=== PATIENT | male | born 1955 | race Caucasian/White ===

== ENCOUNTER → 2017-01-12 | Outpatient (CLI) | payer OTHER ==
--- NOTE | 2017-01-13 11:43 | MRI ---
HISTORY: Post laminectomy syndrome. Low back pain going down legs. Study: Magnetic resonance imaging of the lumbar spine: Multiplanar multisequence magnetic resonance imaging of the lumbar spine was performed. Comparison: None Findings: Examination of the paraspinal soft tissues demonstrate what is seen of the kidneys to be normal. No evidence of an abdominal aortic aneurysm or retroperitoneal lymph node enlargement is identified. A retro aortic left renal vein is present. The paraspinous muscular is normal. Prior surgery has been performed at L4 and L5 consisting of wide laminectomy. Partial resection of the L4 spinous process is noted. There appears to been complete resection of the spinous process of L5. The sagittal images demonstrate normal curvature and alignment. Mild to moderate disc space narrowin g is noted at L4/L5 and L5/S1. Hixa-cw-mionszsk disc desiccation is noted at these 2 levels with min imal elsewhere. The marrow signal intensity is homogeneous. There appears to be a hemangioma in the L5 vertebral body on the right and the L1 vertebral body on the left.. The conus is of normal signa l intensity, size location, terminating at approximately L1. T11/T12: Minimal facet arthropathy. No other significant abnormalities. T12/L1: Minimal facet arthropathy. No other significant abnormalities. L1/L2: Mild facet arthropathy. No other significant abnormalities. L2/L3: Very minimal disc bulging. [id number] facet arthropathy. Mild thickening of the ligam entum flavum. Mild spinal stenosis. L3/L4: Moderate diffuse disc bulging. Disc bulging extends into the inferior recess of both neural foramen with moderate foraminal stenosis. Moderate facet arthropathy and moderate thickening of the ligamentum flavum is noted. Moderate spinal stenosis is present. L4/L5: Moderately severe disc bulging. This spans the spinal canal producing moderate to moderately severe foraminal stenosis, left greater than right. There appears to be minimal neural impingement in the left neural foramen. Moderate facet arthropathy is noted. Moderately severe lateral recess s tenosis is noted bilaterally. Moderate spinal stenosis. L5/S1. Moderately severe diffuse disc bulging. This spans the spinal canal and extends into both ne ural foramen. Moderately severe foraminal stenosis is noted bilaterally. Moderately severe facet ar thropathy is noted, right greater than left. There may be a small disc protrusion versus epidural fi brosis on the right. Moderately severe lateral recess stenosis is noted bilaterally with neural impi ngement in both foramen. IMPRESSION: 1. Lumbar spondylosis and postoperative change as described above. 2. This predominates at L4/L5 and L5/S1. 3. Please see detailed report above. 4. A follow-up MRI with contrast may be of assistance in further evaluation. Reported By:
== END | disposition home or self-care (01) | DRG 552 ==
LOC: RAD 14:36
PROVIDERS: ATTEND Internal Medicine
DX: M96.1 Postlaminectomy syndrome, not elsewhere classified (principal); M48.061 Spinal stenosis, lumbar region without neurogenic claudication; M12.88 Other specific arthropathies, not elsewhere classified, other specified site
CPT/HCPCS: 72148

== ENCOUNTER 2022-12-11 22:24 | Inpatient (IN) ==
--- NOTE | 2022-12-11 22:54 | DR.ABDMALE ---
HPI Time seen Time Seen by Provider: 12/11/22 22:54 PCP Primary Care Physician: Dr. Mcelroy Complaint Chief Complaint Doctors Comments: 67-year-old male presents for evaluation. Has had sinus congestion for some time, but worsened over the past 4 days. Has developed a cough, productive of minimal sputum, developed shortness of breath tonight. No history of lung troubles in the past, but is a cigarette smoker. No vomiting, diarrhea or urinary issues. Having generalized aches, weakness. Also with a rash of his back and abdomen that comes and goes. Chief Complaint:: Pt ambulatory into ER, pt's states the patient has been experiencing conjestion and cold symptoms x4 day when the pt suddenly became pale, very weak and having trouble breathing this afternoon. The pt states he has had a rash since 12/09/22 that comes and goes across his back and abdomnen along with abdominal pain. Pt is diaphoretic, pale, and experiencing involuentury tremors. Pt denies any complaints of chest pain. Self Treatment fo Chief Complaint: OTC cold medicine, Pt drank whiskey with lemon and honey around 2100 COVID-19 Coronavirus risk:travel/contact w/high risk person: No Has patient experienced Coronavirus symptoms: Yes Coronavirus symptoms experienced: Fever, Coughing and Shortness of Breath Reviewed Nurses Notes Review: Yes Source History provided by:: Patient and spouse Mode of arrival Mode of Arrival: Ambulatory Timing Onset of Chief Complaint: 12/08/22 PMH PMH Past Medical History: Yes Past Medical History: Hypertension Past Surgical History: Yes Surgical History: Other Past Surgical History Comment: back sx x2 Family History History of Family Medical Conditions: Yes Family Medical History: [place] Social History Type of Tobacco Use: Cigarettes Alcohol Use: Occasionally Lives With: Spouse Lives Where: Home Travel Risk Coronavirus risk:travel/contact w/high risk person: No Has patient experienced Coronavirus symptoms: Yes Coronavirus symptoms experienced: Fever, Coughing and Shortness of Breath Infectious screening Have you traveled outside the country in the last 6 months?: No Isolation: Respiratory ROS Review of Systems Constitutional: Chills, Fever and Weakness Eyes: No Symptoms Reported ENTM: Nose Congestion Respiratoy: Moist Cough and Short of Breath Cardiovascular: No Symptoms Reported Gastrointestinal/Abdominal: No Symptoms Reported Genitourinary: No Symptoms Reported Neurological: Weakness Musculoskeletal: Muscle Pain Integumentary: Rash Hematologic/Lymphatic: No Symptoms Reported All Other Systems: Reviewed and Negative PE Vital Signs Vital Signs: Temp Pulse Resp BP Pulse Ox O2 Del Method O2 Flow Rate 12/12/22 00:30 94 H 100 12/12/22 00:45 100 H 94 L 12/12/22 00:30 101 H 96 12/12/22 00:30 125/58 12/12/22 00:15 103 H 96 12/12/22 00:00 105 H 95 12/12/22 00:00 100.6 F H 129/68 12/11/22 23:45 115 H 92 L Nasal Cannula 3 12/11/22 23:30 110 H 94 L Nasal Cannula 3 12/11/22 23:30 141/68 12/11/22 23:15 115 H 94 L Nasal Cannula 3 12/11/22 23:15 23 12/11/22 23:00 146/79 12/11/22 23:00 116 H 93 L Nasal Cannula 3 12/11/22 23:06 23 12/11/22 22:51 142/76 12/11/22 22:51 119 H 90 L Nasal Cannula 3 12/11/22 22:36 102.1 F H 122 H 26 H 140/69 87 L Room Air General General Appearance: Alert and Other (Appears uncomfortable. Pulse ox 86% on RA.) Eyes Eye exam: PERRL and EOMI ENT ENT Exam: Normal Oropharynx, Mucous Membranes Moist and TM's Normal Bilaterally Neck Neck Exam: Normal Inspection and Full ROM; negative Tenderness Respiratory Respiratory Exam: Other (slight rales of R base, decreased breath sounds of bases. ); negative Accessory Muscle Use or Respiratory Distress Cardiovascular Cardiovascular Exam: Regular Rate, Normal Rhythm, Tachycardia and Normal Heart Sounds Abdominal Exam Abdominal Exam: Normal Bowel Sounds and Soft; negative Tenderness Extremeties Extremities Exam: Normal Inspection and Full ROM; negative Edema Neurologic Neurological Exam: Alert, Oriented X3 and CN II-XII Intact; negative Motor Sensory Deficit Skin Skin Exam: Warm, Dry and Rash (fine erythematous maculapapular rash of trunk. ) COURSE Treatment Treatment: 67-year-old male presents with cough and shortness of breath. Pulse ox in triage in the upper 80s on room air. Placed on O2, pulse ox 93 to 95% on 2 L. Patient with a temp greater than 102 on arrival. Given oral Tylenol, IV Toradol, IV fluids. Chest x-ray without obvious pneumonia. White count elevated to 13,300. Has a marked left shift of 93 neutrophils 2 bands and only 3 lymphocytes. CMP with potassium little bit low at 3.2, otherwise unremarkable. Negative for COVID/flu. He has positive for RSV. Patient with probable degree of underlying COPD in view of his chronic smoking history. Patient given IV Solu-Medrol, 125 mg and a DuoNeb breathing treatment. Still the same. Discussed with covering MD, Dr. South, accepts admission. We will continue oxygen, DuoNeb treatments, Solu-Medrol, and cover with Rocephin. Potassium a bit low, given oral potassium replacement. ROR Labs Reviewed 12/11/22 22:58 12/11/22 22:58 Laboratory: WBC 13.3 X10^3/uL (3.6-10.0) H 12/11/22 22:58 RBC 4.44 X10^6/uL (4.7-6.0) L 12/11/22 22:58 Hgb 14.5 g/dL (13.5-18.0) 12/11/22 22:58 Hct 43.1 % (42.0-54.0) 12/11/22 22:58 MCV 97.1 fL (80.0-100.0) 12/11/22 22:58 MCH 32.7 pg (27.0-34.0) 12/11/22 22:58 MCHC 33.7 g/dL (33.0-35.0) 12/11/22 22:58 RDW 13.5 % (11.6-16.5) 12/11/22 22:58 Plt Count 129 X10^3/uL (150.0-450.0) L 12/11/22 22:58 Plt Count Comment Decreased (ADEQUATE) 12/11/22 22:58 MPV 9.5 fL (7.4-11.0) 12/11/22 22:58 Neut % (Auto) 93.0 % (42.0-75.0) H 12/11/22 22:58 Lymph % (Auto) 3.9 % (21.0-51.0) L 12/11/22 22:58 [place] % (Auto) 2.9 % (0.0-13.0) 12/11/22 22:58 Eos % (Auto) 0.0 % (0.9-2.9) L 12/11/22 22:58 Baso % (Auto) 0.2 % (0.2-1.0) 12/11/22 22:58 Neut # (Auto) 12.3 x10^3/uL (2.2-4.8) H 12/11/22 22:58 Lymph # (Auto) 0.5 X10^3/uL (1.3-2.9) L 12/11/22 22:58 [place] # (Auto) 0.4 x10^3/uL (0.3-0.8) 12/11/22 22:58 Eos # (Auto) 0.0 x10^3/uL (0.0-0.2) 12/11/22 22:58 Baso # (Auto) 0.0 X10^3/uL (0.0-0.1) 12/11/22 22:58 Absolute Nucleated RBC 0.1 /100WBC 12/11/22 22:58 Total Counted 100 12/11/22 22:58 Neutrophils % (Manual) 93 % (39-76) H 12/11/22 22:58 Band Neutrophils % 2 % (0-10) 12/11/22 22:58 Lymphocytes % (Manual) 3 % (13-43) L 12/11/22 22:58 Monocytes % (Manual) 2 % (4-9) L 12/11/22 22:58 Plt Morphology Comment Normal (NORMAL) 12/11/22 22:58 RBC Morphology Abnormal (NORMAL) 12/11/22 22:58 Stomatocytes Present 12/11/22 22:58 Sodium 139 mmol/L (136-145) 12/11/22 22:58 Corrected Sodium 140 mmol/L (136-145) 12/11/22 22:58 Potassium 3.2 mmol/L (3.5-5.1) L 12/11/22 22:58 Chloride 100 mmol/L (98-107) 12/11/22 22:58 Carbon Dioxide 26.6 mmol/L (21-32) 12/11/22 22:58 BUN 17 mg/dL (7-18) 12/11/22 22:58 Creatinine 0.77 mg/dL (0.70-1.30) 12/11/22 22:58 Est GFR (MDRD) Af Amer > 60 (>60) 12/11/22 22:58 Est GFR (MDRD) Non-Af > 60 (>60) 12/11/22 22:58 Glucose 146 mg/dL (65-99) H 12/11/22 22:58 Lactic Acid 1.3 mmol/L (0.4-2.0) 12/11/22 23:08 Calcium 8.3 mg/dL (8.5-10.1) L 12/11/22 22:58 Corrected Calcium TNP 12/11/22 22:58 Total Bilirubin 0.90 mg/dL (0.2-1.0) 12/11/22 22:58 AST 41 Units/L (15-37) H 12/11/22 22:58 ALT 77 Units/L (12-78) 12/11/22 22:58 Alkaline Phosphatase 89 Units/L (46-116) 12/11/22 22:58 Total Protein 7.2 g/dL (6.4-8.2) 12/11/22 22:58 Albumin 3.9 g/dL (3.4-5.0) 12/11/22 22:58 Globulin 3.3 g/dL (2.5-4.5) 12/11/22 22:58 Albumin/Globulin Ratio 1.2 Ratio (1.1-2.1) 12/11/22 22:58 SARS-CoV-2 (PCR) Negative (NEGATIVE) 12/11/22 22:53 Influenza Type A (PCR) Negative (NEGATIVE) 12/11/22 22:53 Influenza Type B (PCR) Negative (NEGATIVE) 12/11/22 22:53 RSV (PCR) Positive (NEGATIVE) A 12/11/22 22:53 S. pyogenes (TEM-PCR) Not detected (NOT DETECT) 12/11/22 23:15 Opioid Opioid Risk Tool Age (Emanuel box if 16-45): No History of Preadolescent Sexual Abuse: No Total: 0 Total Score Risk Category: Low Risk Copyright: Tavo CASTRO predicting aberrant behaviors Discharge Plan Discharge Plan Patient Disposition: HOME, SELF-CARE Condition: Stable Prescriptions: No Action alprazolam 1 mg tablet 1 mg PO QDAY PRN bisoprolol-hydrochlorothiazide 5-6.25 mg tablet 1 tab PO BID aspirin 81 mg Tablet,Chewable 81 mg PO DAILY Orders to Discharge Patient Discharge Orders: Transfer (Routine); Ordered 12/12/22 Ordered By: Sai Baker
[2022-12-11] MEDS ORDERED: TYLENOL 500 MG TAB EXTRA STRENGTH PO STA (22:55)
[2022-12-11] MEDS ORDERED: NS 1,000 ML IV 1,000 ML IV ONE (22:55)
[2022-12-11] MEDS ORDERED: NS 1,000 ML IV 1,000 ML ONE (23:01)
[2022-12-11] MEDS ORDERED: TYLENOL 500 MG TAB EXTRA STRENGTH PO ONE (23:01)
[2022-12-11] MEDS ORDERED: TORADOL 30 MG VIAL IVP ONE (23:09)
[2022-12-11] MEDS ORDERED: TORADOL 30 MG VIAL ONE (23:10)
[2022-12-11 23:22] LABS: HEMATOCRIT 43.1 % (42.0-54.0); LYMPHOCYTES # (AUTO) 0.5 X10^3/uL (1.3-2.9); MONOCYTES # (AUTO) 0.4 x10^3/uL (0.3-0.8); RED BLOOD COUNT 4.44 X10^6/uL (4.7-6.0); WHITE BLOOD COUNT 13.3 X10^3/uL (3.6-10.0)
[2022-12-11 23:29] LABS: BASOPHILS % (AUTO) 0.2 % (0.2-1.0); HEMOGLOBIN 14.5 g/dL (13.5-18.0); LYMPHOCYTES % (AUTO) 3.9 % (21.0-51.0); MEAN CORPUSCULAR HEMOGLOBIN 32.7 pg (27.0-34.0); MEAN CORPUSCULAR HGB CONC 33.7 g/dL (33.0-35.0); MEAN CORPUSCULAR VOLUME 97.1 fL (80.0-100.0); MEAN PLATELET VOLUME 9.5 fL (7.4-11.0); MONOCYTES % (AUTO) 2.9 % (0.0-13.0); NEUTROPHILS # (AUTO) 12.3 x10^3/uL (2.2-4.8); PLATELET COUNT 129 X10^3/uL (150.0-450.0); RED CELL DISTRIBUTION WIDTH 13.5 % (11.6-16.5)
[2022-12-11 23:36] LABS: BAND NEUTROPHILS % 2 % (0-10)
[2022-12-11 23:37] LABS: PLATELET MORPHOLOGY COMMENT NORMAL (NORMAL); STOMATOCYTES PRESENT
[2022-12-11 23:46] LABS: BLOOD UREA NITROGEN 17 mg/dL (7-18); CALCIUM 8.3 mg/dL (8.5-10.1); CARBON DIOXIDE 26.6 mmol/L (21-32); CHLORIDE 100 mmol/L (98-107); COR NA(FOR HYPERGLY) 140 mmol/L (136-145); CREATININE 0.77 mg/dL (0.70-1.30); GLUCOSE 146 mg/dL (65-99); POTASSIUM 3.2 mmol/L (3.5-5.1); SODIUM 139 mmol/L (136-145); eGFR NON BLACK RACES > 60 (>60)
--- NOTE | 2022-12-12 00:11 | RAD ---
PROCEDURE: Chest X-ray 1 View .HISTORY: Cough and dyspnea.TECHNIQUE: AP view .COMPARISON: None .TECHNICAL QUALITY: Satisfactory .FINDINGS:Normal size heart .Mediastinum and hilar regions show no masses or lymphadenopathy .Normal central vascularity .No pulmonary consolidation, masses, pleural fluid, or pneumothorax .No acute bony abnormality .IMPRESSION:No active cardiopulmonary disease .Electronically signed by: Darvin Siu (Dec 12, 2022 00:10:25)
[2022-12-12] MEDS ORDERED: DUONEB 0.5 MG/3 MG (3 mL) NEB ONE ×2 (00:25→00:31)
[2022-12-12] MEDS ORDERED: SOLU-Medrol 125 MG VIAL IVP ONE (00:25)
[2022-12-12] MEDS ORDERED: SOLU-Medrol 125 MG VIAL ONE (00:30)
[2022-12-12 00:42] LABS: ALANINE AMINOTRANSFERASE 77 Units/L (12-78); ALBUMIN 3.9 g/dL (3.4-5.0); ALKALINE PHOSPHATASE 89 Units/L (46-116); ASPARTATE AMINO TRANSFERASE 41 Units/L (15-37); TOTAL PROTEIN 7.2 g/dL (6.4-8.2)
[2022-12-12] MEDS ORDERED: ROCEPHIN VIAL 1 GRAM IVP STA (01:16)
[2022-12-12] MEDS ORDERED: K-DUR TAB 20 MEQ PO STA (01:18)
[2022-12-12] MEDS ORDERED: ROCEPHIN VIAL 1 GRAM ONE (01:27)
[2022-12-12] MEDS ORDERED: K-DUR TAB 20 MEQ PO ONE (01:27)
[2022-12-12] MEDS ORDERED: CONSULT PHARMACY - POTASSIUM & MAGNESIUM XX SCH ×2 (02:00→07:00)
[2022-12-12] MEDS: D5 1/2 NS 1,000 ML 1,000 ML IV SCH ×3 (02:21→21:22)
[2022-12-12 02:34] VITALS: BMI 23.8
[2022-12-12] MEDS: K-DUR TAB 20 MEQ PO SCH ×3 (03:51→21:23)
[2022-12-12] MEDS: DUONEB 0.5 MG/3 MG (3 mL) NEB SCH ×3 (05:15→20:00)
[2022-12-12] MEDS: SOLU-Medrol 40 MG VIAL IVP SCH ×3 (05:20→21:24)
[2022-12-12] MEDS: XANAX PO PRN ×2 (05:20→21:25)
[2022-12-12 05:31] LABS: BASOPHILS % (AUTO) 0.1 % (0.2-1.0); HEMATOCRIT 41.5 % (42.0-54.0); HEMOGLOBIN 13.9 g/dL (13.5-18.0); LYMPHOCYTES # (AUTO) 0.4 X10^3/uL (1.3-2.9); LYMPHOCYTES % (AUTO) 2.3 % (21.0-51.0); MEAN CORPUSCULAR HEMOGLOBIN 32.8 pg (27.0-34.0); MEAN CORPUSCULAR HGB CONC 33.4 g/dL (33.0-35.0); MEAN CORPUSCULAR VOLUME 98.1 fL (80.0-100.0); MEAN PLATELET VOLUME 9.5 fL (7.4-11.0); MONOCYTES % (AUTO) 5.9 % (0.0-13.0); NEUTROPHILS # (AUTO) 15.9 x10^3/uL (2.2-4.8); NEUTROPHILS % (AUTO) 91.7 % (42.0-75.0); PLATELET COUNT 127 X10^3/uL (150.0-450.0); RED BLOOD COUNT 4.23 X10^6/uL (4.7-6.0); RED CELL DISTRIBUTION WIDTH 13.6 % (11.6-16.5); WHITE BLOOD COUNT 17.3 X10^3/uL (3.6-10.0)
[2022-12-12 05:49] LABS: ALANINE AMINOTRANSFERASE 62 Units/L (12-78); ALBUMIN 3.3 g/dL (3.4-5.0); ALKALINE PHOSPHATASE 75 Units/L (46-116); ASPARTATE AMINO TRANSFERASE 37 Units/L (15-37); BAND NEUTROPHILS % 5 % (0-10); BLOOD UREA NITROGEN 17 mg/dL (7-18); CALCIUM 7.7 mg/dL (8.5-10.1); CARBON DIOXIDE 30.3 mmol/L (21-32); CHLORIDE 102 mmol/L (98-107); COR CA(FOR HYPOALB) 8.3 mg/dL (8.5-10.1); COR NA(FOR HYPERGLY) 140 mmol/L (136-145); CREATININE 0.84 mg/dL (0.70-1.30); GLUCOSE 185 mg/dL (65-99); PLATELET MORPHOLOGY COMMENT NORMAL (NORMAL); POTASSIUM 3.8 mmol/L (3.5-5.1); SODIUM 138 mmol/L (136-145); TOTAL PROTEIN 6.4 g/dL (6.4-8.2); eGFR NON BLACK RACES > 60 (>60)
[2022-12-12 05:50] LABS: STOMATOCYTES PRESENT
[2022-12-12 07:25] LABS: BILIRUBIN,URINE NEGATIVE (NEGATIVE); BLOOD/HEMOGLOBIN,URINE NEGATIVE (NEGATIVE); GLUCOSE, URINE NEGATIVE (NEGATIVE); KETONES,URINE NEGATIVE (NEGATIVE); LEUKOCYTE ESTERASE ,URINE NEGATIVE (NEGATIVE); NITRITES,URINE NEGATIVE (NEGATIVE); PROTEIN,URINE 2+ (NEGATIVE); UROBILINOGEN,URINE NORMAL (NORMAL)
[2022-12-12 07:34] LABS: APPEARANCE,URINE CLEAR (CLEAR); BACTERIA,URINE NEGATIVE /HPF (NEGATIVE); COLOR,URINE YELLOW (YELLOW); RBC,URINE NONE SEEN /HPF (0-3); SQUAMOUS EPITHELIAL CELL,UR RARE /HPF (NEGATIVE)
[2022-12-12] MEDS ORDERED: K-DUR TAB 20 MEQ PO SCH (08:00)
[2022-12-12] MEDS: ASPIRIN 81 MG CHEWTAB PO SCH (09:07)
[2022-12-12] MEDS: MAG-OX TAB PO SCH ×2 (09:07→11:16)
[2022-12-12] MEDS: ZIAC 5/6.25 MG PO SCH ×2 (09:08→21:24)
[2022-12-12 09:16] LABS: ABG ALLEN TEST pos; ABG HCO3 27.6 mmol/L (22-26)
[2022-12-12] MEDS ORDERED: NICOTINE PATCH TD ONE (17:23)
[2022-12-12] MEDS: NICOTINE PATCH TD SCH (17:33)
[2022-12-12] MEDS ORDERED: ROCEPHIN VIAL 1 GRAM 1 G in NS 100 ML IV 100 ML IV SCH (21:00)
[2022-12-12] MEDS: CHECK PATCH XX SCH (21:23)
--- NOTE | 2022-12-12 21:24 | DR.H&P ---
H&P - History & Physical for Day of: H&P Date: 12/11/22 - Chief Complaint Chief Complaint: COUGH, SOB, FEVER, BODY ACHES, WEAKNESS - History of Present Illness History of Present Illness: IS A 67 YEAR OLD PATIENT OF OURS. HE PRESENTED TO THE ER WITH COMPLAINTS OF SONUS CONGESTION, PRODUCTIVE COUGH, AND SHORNTESS OF BREATH. SYMPTOMS APPARENTLY STARTED 3-4 DAYS AGO, BUT HAVE PROGRESSIVELY GOTTEN WORSE. HE DENIES A HX OF LUNG DISEASE, BUT IS AN EVERYDAY CIGARETTE SMOKER. PMH INCLUDES HTN, GENERALIZED ANXIETY, CHRONIC BACK PAIN, AND BACK SURGERY X 2. HE ADMITS TO BODY ACHES, WEAKNESS, FEVER, AND ALSO REPORTS A RASH OF HIS BACK AND ABDOMEN THAT COMES AND GOES. HE DENIES NAUSEA, VOMITING, OR URINARY ISSUES. ON ARRIVAL TO THE HOSPITAL, HIS VITALS WERE: 102.1-122-26-87% ROOM AIR-140/69. LABS WERE OBTAINED. WBC 13.3, RBC 4.44, RBC 14.5, HCT 43.1, PLT COUNT 129, SODIUM 139, POTASSIUM 3.2, CHLORIDE 100, CARBON DIOXIDE 26.6, BUN 17, CREATININE 0.77, GLUCOSE 146, CALCIUM 8.3, TOTAL BILI 0.90, AST 41, ALT 77, ALK PHOS 89, TOTAL PROTEIN 7.2, ALBUMIN 3.9. URINALYSIS WAS OBTAINED AND WAS UNREMARKABLE. ABG REVEALED: PH 7.480, PC02 37, P02 51, HC03 27.6, 02 SAT 88, BASE EXCESS 4.0, A-A GRADIENT 52, FI02 21.0. COVID, INFLUENZA, AND STREP WERE NEGATIVE. PATIENT DID TEST POSITIVE FOR RSV. A CHEST XRAY WAS OBTAINED AND WAS NEGATIVE FOR ACUTE CARDIOPULMONARY DISEASE. IN THE ER, HE WAS GIVEN A NORMAL SALINE BOLUS, TYLENOL 1G PO X 1, TORADOL 30MG IV X 1, DUONEB X 1, SOLU-MEDROL 125MG IV X 1, ROCEPHIN 1G IV X 1, AND K-DUR 20MEQ PO X 1 DOSE. DECISION WAS MADE TO ADMIT PATIENT TO THE HOSPITAL FOR FURTHER EVALUATION AND TREATMENT OF RSV, ACUTE BRONCHITIS, HYPOXIA. HE WAS STARTED ON D51/2 NS NS AT 125 ML/HR, ROCEPHIN 1G IV DAILY, DUONEBS TID, K0DUR 20MEQ BID, NICOTINE PATCH DAILY, SOLU-MEDROL 40MG IV Q8H. HIS HOME MEDICATIONS OF XANAX, ASPIRIN, AND BISOPROLOL WERE RESUMED. WE WILL OBTAIN A CHEST CT WITH CONTRAST. OTHERWISE, WE WILL FOLLOW UP WITH AM LABS AND CONTINUE TO MONITOR. TIME SPENT ON CLINICAL ASSESSMENT, REVIEWING LABS AND IMAGING, DECISION MAKING, AND DOCUMENTATION GREATER THAN 75 MINUTES. - Past Medical History Past Medical History: Hypertension - Past Surgical History Surgical History: Other Additional Surgical History: BACK SURGERY X 2 - Family History Family Medical History: [place] - Social History Does patient currently use any type of tobacco product: Yes (cigarettes) Have you used tobacco products in the last 12 months: Yes Type of Tobacco Use: Cigarettes Does any household member use tobacco: No Alcohol Use: Rarely Drug Use: None - Review of Systems Constitutional: Fever, Chills, Weakness Eyes: No Symptoms Reported ENT: No Symptoms Reported Respiratory: Cough, Shortness of Breath, SOB with Excertion, Sputum Cardiovascular: No Symptoms Reported Gastrointestinal: No Symptoms Reported Genitourinary: No Symptoms Reported Musculoskeletal: No Symptoms Reported Skin: No Symptoms Reported Neurological: Weakness - Physical Exam Vital Signs: Vital Signs Temperature 98.2 F Temperature 97.6 F Pulse Rate [Apical] 96 Pulse Rate [Apical] 94 Pulse Rate 91 Respiratory Rate 20 Respiratory Rate 20 Blood Pressure [Left Arm] 143/68 Blood Pressure [Left Arm] 120/61 O2 Sat by Pulse Oximetry 96 O2 Sat by Pulse Oximetry 95 O2 Sat by Pulse Oximetry 94 Oriented: Normal Eyes: Normal Ear: Normal Nose: Normal Throat: Normal Respiratory: Diminished Throughout, Wheezes Throughout Cardiovascular: Tachycardia : Normal Auscultation: Bowel Sounds: Normal Palpation: Normal Tenderness: Normal Skin: Normal Musculoskeletal: Normal Psychiatric: Normal Mood Description: Calm Affect: Normal Speech Pattern: Clear - Assessment/Plan (1) RSV infection Status: Acute Plan: ADMIT, OBTAIN CHEST CT WITH CONTRAST, D51/2 NS NS AT 125 ML/HR, ROCEPHIN 1G IV DAILY, DUONEBS TID, K0DUR 20MEQ BID, NICOTINE PATCH DAILY, SOLU-MEDROL 40MG IV Q8H, RESUME HOME MEDS (2) Acute bronchitis Qualifiers: Bronchitis organism: unspecified organism Qualified Code(s): J20.9 - Acute bronchitis, unspecified Status: Acute (3) Hypoxia Status: Acute (4) HTN (hypertension) Qualifiers: Hypertension type: primary hypertension Qualified Code(s): I10 - Essential (primary) hypertension Status: Chronic Plan: RESUME BISOPROLOL (5) Generalized anxiety disorder Status: Chronic Plan: RESUME XANAX - Allergies Allergies/Adverse Reactions: Allergies Allergy/AdvReac Type Severity Reaction Status Date / Time No Known Allergies Allergy Verified 12/11/22 23:09 - Medications Home Medications: Home Medications Medication Instructions Recorded Confirmed alprazolam 1 mg tablet 1 mg PO QDAY PRN 12/11/22 12/11/22 aspirin 81 mg chewable tablet 81 mg PO DAILY 12/11/22 12/11/22 bisoprolol 5 1 tab PO BID 12/11/22 12/11/22 mg-hydrochlorothiazide 6.25 mg tablet
[2022-12-13] MEDS ORDERED: DUONEB 0.5 MG/3 MG (3 mL) NEB ONE (05:01)
[2022-12-13] MEDS: SOLU-Medrol 40 MG VIAL IVP SCH ×3 (05:19→21:17)
[2022-12-13] MEDS: D5 1/2 NS 1,000 ML 1,000 ML IV SCH ×3 (05:19→21:15)
[2022-12-13] MEDS ORDERED: OMNIPAQUE 350 mg/mL 100 mL BTL 100 ML ONE (05:23)
[2022-12-13] MEDS ORDERED: NS 100 ML IV 100 ML ONE (05:23)
[2022-12-13] MEDS: DUONEB 0.5 MG/3 MG (3 mL) NEB SCH ×5 (05:26→20:08)
[2022-12-13 06:08] LABS: BASOPHILS % (AUTO) 0.2 % (0.2-1.0); HEMATOCRIT 40.1 % (42.0-54.0); HEMOGLOBIN 13.2 g/dL (13.5-18.0); LYMPHOCYTES % (AUTO) 4.9 % (21.0-51.0); MEAN CORPUSCULAR HEMOGLOBIN 32.6 pg (27.0-34.0); MEAN CORPUSCULAR VOLUME 98.8 fL (80.0-100.0); MEAN PLATELET VOLUME 10.2 fL (7.4-11.0); MONOCYTES % (AUTO) 5.2 % (0.0-13.0); NEUTROPHILS # (AUTO) 17.5 x10^3/uL (2.2-4.8); NEUTROPHILS % (AUTO) 89.7 % (42.0-75.0); PLATELET COUNT 133 X10^3/uL (150.0-450.0); RED BLOOD COUNT 4.06 X10^6/uL (4.7-6.0); RED CELL DISTRIBUTION WIDTH 13.8 % (11.6-16.5); WHITE BLOOD COUNT 19.5 X10^3/uL (3.6-10.0)
[2022-12-13 06:15] LABS: ALANINE AMINOTRANSFERASE 51 Units/L (12-78); ALKALINE PHOSPHATASE 75 Units/L (46-116); ASPARTATE AMINO TRANSFERASE 25 Units/L (15-37); BLOOD UREA NITROGEN 16 mg/dL (7-18); CALCIUM 8.1 mg/dL (8.5-10.1); CARBON DIOXIDE 27.1 mmol/L (21-32); CHLORIDE 104 mmol/L (98-107); COR CA(FOR HYPOALB) 8.9 mg/dL (8.5-10.1); COR NA(FOR HYPERGLY) 139 mmol/L (136-145); CREATININE 0.68 mg/dL (0.70-1.30); GLUCOSE 168 mg/dL (65-99); MAGNESIUM 2.2 mg/dL (2.0-2.9); POTASSIUM 4.1 mmol/L (3.5-5.1); SODIUM 137 mmol/L (136-145); TOTAL PROTEIN 6.4 g/dL (6.4-8.2); eGFR NON BLACK RACES > 60 (>60)
--- NOTE | 2022-12-13 06:19 | RAD ---
EXAM:Portable chestHISTORY:Shortness of breath, RSVCOMPARISON:12/11/2022FINDINGS:Heart size is normal. Mariel are normal. Lungs are well inflated and free of acute infiltrates. No pleural effusions are identified. Bony thorax is unremarkable.IMPRESSION:No significant abnormality identifiedTHIS IS AN ELECTRONICALLY VERIFIED FINAL [id number]/13/2022 6:16 AM - Electronically signed by Kimani Mckenzie MD
--- NOTE | 2022-12-13 07:05 | CT ---
EXAM:CHEST WITH CONTRASTHISTORY:Acute hypoxia, RSVTECHNIQUE:Axial postcontrast images with coronal and sagittal reformats. Dose reduction procedures were used with mA/kv adjusted for body size.COMPARISON:NoneFINDINGS:Examination of the mediastinum demonstrated no evidence for mediastinal masses, and large mediastinal or enlarged hilar adenopathy. Or significant aortic abnormality other than calcific atherosclerotic change. Calcified mediastinal and hilar nodes likely related to old granulomatous disease. No pleural effusions are identified. No chest wall or axillary abnormalities identified. Those portions of the upper abdominal organs visualized appeared within normal limits with the exception of mild fatty infiltration of the liver. No chest wall or axillary abnormality is identified. Examination of the lung warren demonstrated bilateral benign calcified granulomas. There are some very subtle peribronchial infiltrates in the right upper lobe, posterior right lower lobe and posterior left lower lobe. Findings are suspicious for mild or early multifocal bronchopneumonia. These infiltrates were not visible on the recent plain film. There is also diffuse peribronchial thickening predominantly in the lower lobes consistent with bronchitis which could be acute, chronic, or both. No masses or areas of consolidation or bronchiectasis identified. No significant pulmonary nodules are identified.IMPRESSION:Multifocal small areas of very subtle peribronchial infiltrate involving the right upper lobe and bilateral lower lobes suggestive of mild or early multifocal bronchopneumonia. These findings are not visible on the recent plain filmDiffuse peribronchial thickening most prominent in the lower lobes bilaterally consistent with bronchitis which could be acute, chronic, or bothOld granulomatous diseaseTHIS IS AN ELECTRONICALLY VERIFIED FINAL [id number]/13/2022 7:01 AM - Electronically signed by Kimani Mckenzie MD
[2022-12-13] MEDS: ASPIRIN 81 MG CHEWTAB PO SCH (09:42)
[2022-12-13] MEDS: NICOTINE PATCH TD SCH (09:42)
[2022-12-13] MEDS: XANAX PO PRN (09:42)
[2022-12-13] MEDS: ZIAC 5/6.25 MG PO SCH ×2 (09:43→21:17)
[2022-12-13] MEDS: K-DUR TAB 20 MEQ PO SCH ×2 (09:43→21:17)
[2022-12-13] MEDS: CHECK PATCH XX SCH ×3 (09:44→23:38)
[2022-12-13] MEDS ORDERED: FORTAZ or TAZICEF VIAL INJ IVP SCH (11:00)
--- NOTE | 2022-12-13 11:23 | PCM.PROG ---
Progress Note - Progress Note for Day of Date of Exam: 12/13/22 - Subjective Subjective: IS CURRENTLY INPATIENT STATUS FOR TREATMENT OF RSV, ACUTE BRONCHITIS, HYPOXIA, HTN, AND GENERALIZED ANXIETY. TODAY, HE IS ALERT AND OREINTED, LYING IN BED ON MORNING ROUNDS. HE REPORTS HAVING AN UNEVENTFUL NIGHT. HE CONTINUES TO COMPLAIN OF SHORTNESS OF BREATH AND COUGH THIS MORNING. HE APPEARS TO HAVE INCREASED RESPIRATORY EFFORTS THIS MORNING, COMPARED TO YESTERDAY. NURSING STAFF REPORTS THAT HIS OXYGEN SATURATIONS DID FALL TO THE UPPER 80s WHILE AMBULATING IN THE ROOM WITHOUT OXYGEN YESTERDAY. ON EXAMINATION TODAY, HEART IS REGULAR IN RATE AND RHYTHM. BILATERAL LUNGS ARE NOTED WITH SCATTERED WHEEZING THROUGHOUT. ABDOMEN IS ROUND, SOFT, AND NON-TENDER WITH NORMAL BOWEL SOUNDS NOTED IN ALL QUADRANTS. GOOD RANGE OF MOTION NOTED TO UPPER AND LOWER EXTREMITIES WITH NO EDEMA NOTED. HIS VITALS THIS MORNING ARE: 98.0-87-18-97%-126/63. LABS WERE OBTAINED. WBC 19.5, RBC 4.06, HGB 13.2, HCT 40.1, PLT COUNT 133, SODIUM 137, POTASSIUM 4.1, CHLORIDE 104, BUN 16, CREATININE 0.68, GLUCOSE 168, CALCIUM 8.1, MAGNESIUM 2.2, AST 25, ALT 51, ALK PHOS 75, TOTAL PROTEIN 6.4, ALBUMIN 3.0. BLOOD CULTURES ARE PENDING. WE OBTAINED A CHEST CT WITH CONTRAST. IT REVEALED: Multifocal small areas of very subtle peribronchial infiltrate involving the right upper lobe and bilateral lower lobes suggestive of mild or early multifocal bronchopneumonia. These findings are not visible on the recent plain film. Diffuse peribronchial thickening most prominent in the lower lobes bilaterally consistent with bronchitis which could be acute, chronic, or both. Old granulomatous disease. HE IS CURRENTLY RECEIVING D51/2 NS NS AT 125 ML/HR, ROCEPHIN 1G IV DAILY, DUONEBS TID, K-DUR 20MEQ BID, NICOTINE PATCH DAILY, SOLU-MEDROL 40MG IV Q8H. HIS HOME MEDICATIONS OF XANAX, ASPIRIN, AND BISOPROLOL WERE RESUMED. WE WILL DISCONTINUE THE ROCEPHIN AND ADD LEVAQUIN 500MG IV DAILY AND FORTAZ 1G IV Q8H. OTHERWISE, WE WILL FOLLOW UP WITH AM LABS AND CONTINUE TO MONITOR. TIME SPENT ON CLINICAL ASSESSMENT, REVIEWING LABS AND IMAGING, DECISION MAKING, AND DOCUMENTATION GREATER THAN 45 MINUTES. - Past Medical Family Social History Past Med/Fam/Surg Hx: No changes since H&P Allergies: Allergies No Known Allergies Allergy (Verified 12/11/22 23:09) - Review of Systems ROS: No change since H&P - Vital Signs and I&O's Vital Signs: Vital Signs Temperature 98.0 F Pulse Rate [Apical] 73 Pulse Rate 87 Respiratory Rate 18 Blood Pressure [Left Arm] 126/63 O2 Sat by Pulse Oximetry 97 O2 Sat by Pulse Oximetry 97 Intake and Output: Intake & Output 12/10/22 12/11/22 12/12/22 12/13/22 12:59 11:59 11:59 11:59 Intake Total 496 / 496 3340 / 3340 Output Total 0 / 0 Balance 496 / 496 3340 / 3340 - Physical Exam Oriented: Normal Eyes: Normal Ear: Normal Nose: Normal Throat: Normal Respiratory: Generalized, Wheezes Cardiovascular: Normal : Normal Auscultation: Bowel Sounds: Normal Palpation: Normal Tenderness: Normal Skin: Normal Musculoskeletal: Normal Psychiatric: Normal Mood Description: Calm Affect: Normal Speech Pattern: Clear, Appropriate - Laboratory and Diagnostics Result Diagrams: 12/13/22 05:15 12/13/22 05:15 Labs: 12/11/22 23:08 Blood Blood Culture - Preliminary 12/11/22 22:58 Blood Blood Culture - Preliminary Laboratory WBC 19.5 X10^3/uL (3.6-10.0) H 12/13/22 05:15 RBC 4.06 X10^6/uL (4.7-6.0) L 12/13/22 05:15 Hgb 13.2 g/dL (13.5-18.0) L 12/13/22 05:15 Hct 40.1 % (42.0-54.0) L 12/13/22 05:15 MCV 98.8 fL (80.0-100.0) 12/13/22 05:15 MCH 32.6 pg (27.0-34.0) 12/13/22 05:15 MCHC 33.0 g/dL (33.0-35.0) 12/13/22 05:15 RDW 13.8 % (11.6-16.5) 12/13/22 05:15 Plt Count 133 X10^3/uL (150.0-450.0) L 12/13/22 05:15 Plt Count Comment Decreased (ADEQUATE) 12/12/22 05:00 MPV 10.2 fL (7.4-11.0) 12/13/22 05:15 Neut % (Auto) 89.7 % (42.0-75.0) H 12/13/22 05:15 Lymph % (Auto) 4.9 % (21.0-51.0) L 12/13/22 05:15 [place] % (Auto) 5.2 % (0.0-13.0) 12/13/22 05:15 Eos % (Auto) 0.0 % (0.9-2.9) L 12/13/22 05:15 Baso % (Auto) 0.2 % (0.2-1.0) 12/13/22 05:15 Neut # (Auto) 17.5 x10^3/uL (2.2-4.8) H 12/13/22 05:15 Lymph # (Auto) 1.0 X10^3/uL (1.3-2.9) L 12/13/22 05:15 [place] # (Auto) 1.0 x10^3/uL (0.3-0.8) H 12/13/22 05:15 Eos # (Auto) 0.0 x10^3/uL (0.0-0.2) 12/13/22 05:15 Baso # (Auto) 0.0 X10^3/uL (0.0-0.1) 12/13/22 05:15 Absolute Nucleated RBC 0.1 /100WBC 12/13/22 05:15 Total Counted 100 12/12/22 05:00 Neutrophils % (Manual) 87 % (39-76) H 12/12/22 05:00 Band Neutrophils % 5 % (0-10) 12/12/22 05:00 Lymphocytes % (Manual) 3 % (13-43) L 12/12/22 05:00 Monocytes % (Manual) 5 % (4-9) 12/12/22 05:00 Plt Morphology Comment Normal (NORMAL) 12/12/22 05:00 RBC Morphology Abnormal (NORMAL) 12/12/22 05:00 Stomatocytes Present 12/12/22 05:00 D-Dimer 0.47 ug/ml (0.0-0.57) 12/12/22 13:35 Sample Site Lrad 12/12/22 09:14 ABG pH 7.480 (7.35-7.45) H 12/12/22 09:14 ABG pCO2 37.0 mmHg (35.0-45.0) 12/12/22 09:14 ABG pO2 51.0 mmHg (80.0-100.0) L 12/12/22 09:14 ABG HCO3 27.6 mmol/L (22-26) H 12/12/22 09:14 ABG O2 Saturation 88.0 % (90-100) L 12/12/22 09:14 ABG Base Excess 4.0 mmol/L (-2.0-2.0) H 12/12/22 09:14 David Test pos 12/12/22 09:14 A-a Gradient 52.0 mmHg 12/12/22 09:14 FiO2 21.0 12/12/22 09:14 Blood Gas Comments nathaniel well ms/eb 12/12/22 09:14 Sodium 137 mmol/L (136-145) 12/13/22 05:15 Corrected Sodium 139 mmol/L (136-145) 12/13/22 05:15 Potassium 4.1 mmol/L (3.5-5.1) 12/13/22 05:15 Chloride 104 mmol/L (98-107) 12/13/22 05:15 Carbon Dioxide 27.1 mmol/L (21-32) 12/13/22 05:15 BUN 16 mg/dL (7-18) 12/13/22 05:15 Creatinine 0.68 mg/dL (0.70-1.30) L 12/13/22 05:15 Est GFR (MDRD) Af Amer > 60 (>60) 12/13/22 05:15 Est GFR (MDRD) Non-Af > 60 (>60) 12/13/22 05:15 Glucose 168 mg/dL (65-99) H 12/13/22 05:15 Lactic Acid 1.3 mmol/L (0.4-2.0) 12/11/22 23:08 Calcium 8.1 mg/dL (8.5-10.1) L 12/13/22 05:15 Corrected Calcium 8.9 mg/dL (8.5-10.1) 12/13/22 05:15 Magnesium 2.2 mg/dL (2.0-2.9) 12/13/22 05:15 Total Bilirubin 0.50 mg/dL (0.2-1.0) 12/13/22 05:15 AST 25 Units/L (15-37) 12/13/22 05:15 ALT 51 Units/L (12-78) 12/13/22 05:15 Alkaline Phosphatase 75 Units/L (46-116) 12/13/22 05:15 Total Protein 6.4 g/dL (6.4-8.2) 12/13/22 05:15 Albumin 3.0 g/dL (3.4-5.0) L 12/13/22 05:15 Globulin 3.4 g/dL (2.5-4.5) 12/13/22 05:15 Albumin/Globulin Ratio 0.9 Ratio (1.1-2.1) L 12/13/22 05:15 Specimen Type Clean catch urine 12/12/22 07:15 Urine Color Yellow (YELLOW) 12/12/22 07:15 Urine Appearance Clear (CLEAR) 12/12/22 07:15 Urine pH 5.0 (5.0 - 8.0) 12/12/22 07:15 Ur Specific [place] 1.010 (1.000-1.030) 12/12/22 07:15 Urine Protein 2+ (NEGATIVE) 12/12/22 07:15 Urine Glucose (UA) Negative (NEGATIVE) 12/12/22 07:15 Urine Ketones Negative (NEGATIVE) 12/12/22 07:15 Urine Blood Negative (NEGATIVE) 12/12/22 07:15 Urine Nitrite Negative (NEGATIVE) 12/12/22 07:15 Urine Bilirubin Negative (NEGATIVE) 12/12/22 07:15 Urine Urobilinogen Normal (NORMAL) 12/12/22 07:15 Ur Leukocyte Esterase Negative (NEGATIVE) 12/12/22 07:15 Urine RBC None seen /HPF (0-3) 12/12/22 07:15 Urine WBC 0-2 /HPF (0-5) 12/12/22 07:15 Ur Squamous Epith Cells Rare /HPF (NEGATIVE) 12/12/22 07:15 Urine Bacteria Negative /HPF (NEGATIVE) 12/12/22 07:15 Urine Mucus Rare /HPF (NEGATIVE) 12/12/22 07:15 Ur Culture Indicated? No/not indicated 12/12/22 07:15 SARS-CoV-2 (PCR) Negative (NEGATIVE) 12/11/22 22:53 Influenza Type A (PCR) Negative (NEGATIVE) 12/11/22 22:53 Influenza Type B (PCR) Negative (NEGATIVE) 12/11/22 22:53 RSV (PCR) Positive (NEGATIVE) A 12/11/22 22:53 S. pyogenes (TEM-PCR) Not detected (NOT DETECT) 12/11/22 23:15 - Plan (1) RSV infection Status: Acute Plan: D51/2 NS NS AT 125 ML/HR, LEVAQUIN 500MG IV DAILY, FORTAZ 1G IV Q8H, DUONEBS TID, K-DUR 20MEQ BID, NICOTINE PATCH DAILY, SOLU-MEDROL 40MG IV Q8H, RESUME HOME MEDS (2) Bronchopneumonia Status: Acute (3) Hypoxia Status: Acute (4) HTN (hypertension) Status: Chronic Qualifiers: Hypertension type: primary hypertension Qualified Code(s): I10 - Essential (primary) hypertension Plan: RESUME BISOPROLOL (5) Generalized anxiety disorder Status: Chronic Plan: RESUME XANAX
[2022-12-13] MEDS: XANAX PO SCH ×3 (13:04→21:17)
[2022-12-13] MEDS: FORTAZ or TAZICEF VIAL INJ 1 G in NS 100 ML IV 100 ML IV SCH ×3 (13:12→21:16)
[2022-12-13] MEDS: LEVAQUIN PREMIX IV 500 MG 500 MG/100 ML BAG IV SCH (14:15)
[2022-12-13] MEDS: PULMICORT NEB TX 0.5 MG NEB SCH (20:08)
--- NOTE | 2022-12-14 05:12 | RAD ---
PROCEDURE: Chest X-ray 1 View .HISTORY: Dyspnea.TECHNIQUE: AP portable done at 4:36 a.m..COMPARISON: 12/13/2022.TECHNICAL QUALITY: Satisfactory .FINDINGS:Normal size heart .Mediastinum and hilar regions show no masses or lymphadenopathy .Normal central vascularity .No pulmonary consolidation, masses, pleural fluid, or pneumothorax .No acute bony abnormality .IMPRESSION:No active cardiopulmonary disease .Electronically signed by: Darvin Siu (Dec 14, 2022 05:11:18)
[2022-12-14] MEDS: FORTAZ or TAZICEF VIAL INJ 1 G in NS 100 ML IV 100 ML IV SCH (05:29)
[2022-12-14] MEDS: SOLU-Medrol 40 MG VIAL IVP SCH (05:30)
[2022-12-14] MEDS: XANAX PO SCH (05:30)
[2022-12-14] MEDS: D5 1/2 NS 1,000 ML 1,000 ML IV SCH (05:48)
[2022-12-14 05:54] LABS: BASOPHILS % (AUTO) 0.3 % (0.2-1.0); HEMATOCRIT 43.1 % (42.0-54.0); HEMOGLOBIN 14.1 g/dL (13.5-18.0); LYMPHOCYTES % (AUTO) 5.2 % (21.0-51.0); MEAN CORPUSCULAR HEMOGLOBIN 32.2 pg (27.0-34.0); MEAN CORPUSCULAR HGB CONC 32.7 g/dL (33.0-35.0); MEAN CORPUSCULAR VOLUME 98.5 fL (80.0-100.0); MONOCYTES # (AUTO) 0.9 x10^3/uL (0.3-0.8); MONOCYTES % (AUTO) 4.9 % (0.0-13.0); NEUTROPHILS # (AUTO) 17.1 x10^3/uL (2.2-4.8); NEUTROPHILS % (AUTO) 89.6 % (42.0-75.0); PLATELET COUNT 178 X10^3/uL (150.0-450.0); RED BLOOD COUNT 4.37 X10^6/uL (4.7-6.0); RED CELL DISTRIBUTION WIDTH 13.3 % (11.6-16.5); WHITE BLOOD COUNT 19.1 X10^3/uL (3.6-10.0)
[2022-12-14 06:04] LABS: ALANINE AMINOTRANSFERASE 72 Units/L (12-78); ALBUMIN 3.3 g/dL (3.4-5.0); ALKALINE PHOSPHATASE 84 Units/L (46-116); ASPARTATE AMINO TRANSFERASE 30 Units/L (15-37); BLOOD UREA NITROGEN 14 mg/dL (7-18); CALCIUM 8.5 mg/dL (8.5-10.1); CARBON DIOXIDE 27.9 mmol/L (21-32); CHLORIDE 102 mmol/L (98-107); COR CA(FOR HYPOALB) 9.1 mg/dL (8.5-10.1); COR NA(FOR HYPERGLY) 138 mmol/L (136-145); CREATININE 0.75 mg/dL (0.70-1.30); GLUCOSE 140 mg/dL (65-99); POTASSIUM 4.3 mmol/L (3.5-5.1); SODIUM 137 mmol/L (136-145); TOTAL PROTEIN 7.1 g/dL (6.4-8.2); eGFR NON BLACK RACES > 60 (>60)
[2022-12-14 08:15] VITALS: BP 136/72; RESP 18; TEMP 97.6
[2022-12-14] MEDS: LEVAQUIN PREMIX IV 500 MG 500 MG/100 ML BAG IV SCH (08:46)
[2022-12-14] MEDS: K-DUR TAB 20 MEQ PO SCH (08:46)
[2022-12-14] MEDS: ASPIRIN 81 MG CHEWTAB PO SCH (08:46)
[2022-12-14] MEDS: NICOTINE PATCH TD SCH (08:46)
[2022-12-14] MEDS: ZIAC 5/6.25 MG PO SCH (08:46)
[2022-12-14] MEDS: CHECK PATCH XX SCH (08:47)
[2022-12-14] MEDS: DUONEB 0.5 MG/3 MG (3 mL) NEB SCH (08:56)
[2022-12-14] MEDS: PULMICORT NEB TX 0.5 MG NEB SCH (08:56)
[2022-12-14 09:27] VITALS: PULSE 81; O2SAT 94
== END 2022-12-14 11:05 | disposition home or self-care (01) | DRG 195 ==
LOC: ER 22:26 → MED/SURG 22:26 → OBSVTOIN 12-12 01:14 → MED/SURG 12-12 01:41
PROVIDERS: ADMIT Obstetrics & Gynecology Obstetrics; ATTEND Internal Medicine
DX: E83.42 Hypomagnesemia; J12.1 Respiratory syncytial virus pneumonia; R06.02 Shortness of breath; Z72.0 Tobacco use; R09.02 Hypoxemia; E87.6 Hypokalemia

== ENCOUNTER 2024-02-01 03:02 | Inpatient (IN) ==
[2024-02-01 03:20] VITALS: BMI 25.8
[2024-02-01 03:23] LABS: ABG ALLEN TEST POS; ABG BASE EXCESS 0.1 mmol/L (-2.0-2.0); ABG HCO3 24.7 mmol/L (22-26)
[2024-02-01 03:27] LABS: HEMOGLOBIN 14.9 g/dL (13.5-18.0); LYMPHOCYTES # (AUTO) 0.4 X10^3/uL (1.3-2.9); LYMPHOCYTES % (AUTO) 2.1 % (21.0-51.0); MEAN CORPUSCULAR HEMOGLOBIN 33.3 pg (27.0-34.0); MEAN PLATELET VOLUME 9.6 fL (7.4-11.0); RED BLOOD COUNT 4.48 X10^6/uL (4.7-6.0)
--- NOTE | 2024-02-01 03:27 | EKG ---
Test Reason : Chest Pain Blood Pressure : */* mmHG Vent. Rate : 116 BPM Atrial Rate : 116 BPM P-R Int : 148 ms QRS Dur : 136 ms QT Int : 356 ms P-R-T Axes : 74 264 61 degrees QTc Int : 494 ms Sinus tachycardia Right bundle branch block Abnormal ECG No previous ECGs available Confirmed by Sina Caputo MD ([id number]) on 02/01/2024 7:33:21 AM Referred By: Confirmed By: Sina Caputo MD
[2024-02-01 03:32] LABS: BASOPHILS # (AUTO) 0.1 X10^3/uL (0.0-0.1); BASOPHILS % (AUTO) 0.4 % (0.2-1.0); HEMATOCRIT 43.5 % (42.0-54.0); MEAN CORPUSCULAR HGB CONC 34.3 g/dL (33.0-35.0); MEAN CORPUSCULAR VOLUME 97.2 fL (80.0-100.0); MONOCYTES # (AUTO) 1.4 x10^3/uL (0.3-0.8); MONOCYTES % (AUTO) 7.2 % (0.0-13.0); NEUTROPHILS # (AUTO) 17.6 x10^3/uL (2.2-4.8); NEUTROPHILS % (AUTO) 90.3 % (42.0-75.0); PLATELET COUNT 132 X10^3/uL (150.0-450.0); RED CELL DISTRIBUTION WIDTH 13.2 % (11.6-16.5); WHITE BLOOD COUNT 19.5 X10^3/uL (3.6-10.0)
[2024-02-01 03:34] LABS: INR 1.13 (0.8-1.3)
[2024-02-01 03:41] LABS: ALANINE AMINOTRANSFERASE 63 Units/L (12-78); ALKALINE PHOSPHATASE 92 Units/L (46-116); ASPARTATE AMINO TRANSFERASE 34 Units/L (15-37); BLOOD UREA NITROGEN 16 mg/dL (7-18); CALCIUM 8.4 mg/dL (8.5-10.1); CHLORIDE 102 mmol/L (98-107); COR NA(FOR HYPERGLY) 143 mmol/L (136-145); CREATINE KINASE 571 Units/L (39-308); CREATININE 0.94 mg/dL (0.70-1.30); GLUCOSE 205 mg/dL (65-99); POTASSIUM 3.5 mmol/L (3.5-5.1); SODIUM 140 mmol/L (136-145); TOTAL PROTEIN 7.4 g/dL (6.4-8.2); eGFR NON BLACK RACES > 60 (>60)
[2024-02-01 03:43] LABS: BAND NEUTROPHILS % 6 % (0-10); METAMYELOCYTES % 2; PLATELET MORPHOLOGY COMMENT NORMAL (NORMAL); STOMATOCYTES PRESENT
[2024-02-01] MEDS: DECADRON INJ IV ONE (03:56)
[2024-02-01] MEDS: DUONEB 0.5 MG/3 MG (3 mL) NEB ONE (03:57)
[2024-02-01] MEDS: ROCEPHIN VIAL 1 GRAM 1 G in NS 100 ML IV 100 ML IV ONE (04:16)
--- NOTE | 2024-02-01 04:16 | DR.SOBA ---
HPI Time Seen Time Seen by Provider: 02/01/24 03:16 Primary Care Physician Primary Care Physician: [place] Complaints Chief Complaint Doctors Comments: 68-year-old male, diagnosed with RSV with associated bronchitis 2 months ago, no other respiratory illness/disease, complains of productive cough for the past 48 hours, with increasing dyspnea the past 24 hours. Developed fever and chills the last few hours prior to coming to the ER. Denies other complaints. Chief Complaint:: PT AMBULATORY IN ED WITH COMPLAINTS OF SOB X2 DAYS, STATES GETTING HARDER TO BREATHE AND HAD SIMILAR EPISODE LAST YEAR WHEN DX WITH COVID. PT USING ACCESORY MUSCLES TO BREATHE AND BRUNG BACK TO ROOM AND PLACED ON 2L NC SATS UP TO 92% RESPIRATORY AT BEDSIDE. PT ALSO HAS WHITE COATING TO MOUTH AND RASH TO UPPER TORSO THAT APPEARED YESTERDAY. COVID-19 Coronavirus risk:travel/contact w/high risk person: No Has patient experienced Coronavirus symptoms: No Coronavirus symptoms experienced: Coughing and Shortness of Breath Source History Provided: Patient Mode of Arrival Mode of Arrival: Ambulatory Timing Onset of Chief Complaint: 01/30/24 PMH PMH Past Medical History: Yes Past Medical History: Anxiety and Hypertension Past Surgical History: Yes Surgical History: Ortho Surgery Family History History of Family Medical Conditions: Yes Family Medical History: [place] Travel Risk Coronavirus risk:travel/contact w/high risk person: No Has patient experienced Coronavirus symptoms: No Coronavirus symptoms experienced: Coughing and Shortness of Breath Infectious screening Have you traveled outside the country in the last 6 months?: No Isolation: Standard ROS Review of Systems Constitutional: Chills and Fever Respiratoy: Moist Cough and Short of Breath Cardiovascular: negative Chest Pain or Palpitations PE Vital Signs Vitals: Vital Signs Temperature 100.2 F Pulse Rate 108 Pulse Rate 105 Pulse Rate 116 Pulse Rate 116 Pulse Rate 116 Pulse Rate 125 Respiratory Rate 27 Respiratory Rate 41 Respiratory Rate 43 Respiratory Rate 41 Respiratory Rate 28 Blood Pressure 143/73 Blood Pressure 148/81 Blood Pressure 137/79 Blood Pressure 141/72 O2 Sat by Pulse Oximetry 94 O2 Sat by Pulse Oximetry 93 O2 Sat by Pulse Oximetry 93 O2 Sat by Pulse Oximetry 92 O2 Sat by Pulse Oximetry 86 General Limitations: No Limitations General Appearance: Alert and In No Apparent Distress Head Head Exam: Normal Inspection Eyes Eye exam: Normal Appearance ENT ENT Exam: Normal Exam Neck Neck Exam: Normal Inspection Chest Chest Inspection: Normal Inspection Respiratory Respiratory Exam: Bilateral: Rhonchi and Lower: Rhonchi Cardiovascular Cardiovascular Exam: Tachycardia and Normal Heart Sounds; negative Irregular Rhythm Abdominal Exam Abdominal Exam: Normal Inspection, Normal Bowel Sounds and Soft Extremities Extremities Exam: Normal Inspection Back Back Exam: Normal Inspection Neurologic Neurological Exam: Alert and Oriented X3 Psychiatric Psychiatric Exam: Normal Affect and Normal Mood Skin Skin Exam: Warm, Dry, Intact and Normal Color ROR Labs Reviewed 02/01/24 03:15 02/01/24 03:15 Laboratory: WBC 19.5 X10^3/uL (3.6-10.0) H 02/01/24 03:15 RBC 4.48 X10^6/uL (4.7-6.0) L 02/01/24 03:15 Hgb 14.9 g/dL (13.5-18.0) 02/01/24 03:15 Hct 43.5 % (42.0-54.0) 02/01/24 03:15 MCV 97.2 fL (80.0-100.0) 02/01/24 03:15 MCH 33.3 pg (27.0-34.0) 02/01/24 03:15 MCHC 34.3 g/dL (33.0-35.0) 02/01/24 03:15 RDW 13.2 % (11.6-16.5) 02/01/24 03:15 Plt Count 132 X10^3/uL (150.0-450.0) L 02/01/24 03:15 Plt Count Comment Decreased (ADEQUATE) 02/01/24 03:15 MPV 9.6 fL (7.4-11.0) 02/01/24 03:15 Neut % (Auto) 90.3 % (42.0-75.0) H 02/01/24 03:15 Lymph % (Auto) 2.1 % (21.0-51.0) L 02/01/24 03:15 [place] % (Auto) 7.2 % (0.0-13.0) 02/01/24 03:15 Eos % (Auto) 0.0 % (0.9-2.9) L 02/01/24 03:15 Baso % (Auto) 0.4 % (0.2-1.0) 02/01/24 03:15 Neut # (Auto) 17.6 x10^3/uL (2.2-4.8) H 02/01/24 03:15 Lymph # (Auto) 0.4 X10^3/uL (1.3-2.9) L 02/01/24 03:15 [place] # (Auto) 1.4 x10^3/uL (0.3-0.8) H 02/01/24 03:15 Eos # (Auto) 0.0 x10^3/uL (0.0-0.2) 02/01/24 03:15 Baso # (Auto) 0.1 X10^3/uL (0.0-0.1) 02/01/24 03:15 Absolute Nucleated RBC 0.0 /100WBC 02/01/24 03:15 Total Counted 100 02/01/24 03:15 Neutrophils % (Manual) 83 % (39-76) H 02/01/24 03:15 Band Neutrophils % 6 % (0-10) 02/01/24 03:15 Lymphocytes % (Manual) 3 % (13-43) L 02/01/24 03:15 Monocytes % (Manual) 6 % (4-9) 02/01/24 03:15 Metamyelocytes % 2 02/01/24 03:15 Plt Morphology Comment Normal (NORMAL) 02/01/24 03:15 RBC Morphology Abnormal (NORMAL) 02/01/24 03:15 Stomatocytes Present 02/01/24 03:15 PT 14.3 SECONDS (11.8-14.3) 02/01/24 03:15 INR Target Range - 02/01/24 03:15 INR 1.13 (0.8-1.3) 02/01/24 03:15 APTT 29.2 SECONDS (22.9-36.5) 02/01/24 03:15 PTT Comment - 02/01/24 03:15 D-Dimer 0.38 ug/ml (0.0-0.57) 02/01/24 03:15 Sample Site Lr 02/01/24 03:08 ABG pH 7.410 (7.35-7.45) 02/01/24 03:08 ABG pCO2 39.0 mmHg (35.0-45.0) 02/01/24 03:08 ABG pO2 59.0 mmHg (80.0-100.0) L 02/01/24 03:08 ABG HCO3 24.7 mmol/L (22-26) 02/01/24 03:08 ABG O2 Saturation 90.0 % (90-100) 02/01/24 03:08 ABG Base Excess 0.1 mmol/L (-2.0-2.0) 02/01/24 03:08 David Test Pos 02/01/24 03:08 A-a Gradient 92.0 mmHg 02/01/24 03:08 FiO2 28.0 02/01/24 03:08 Blood Gas Comments Carley well sw 02/01/24 03:08 Sodium 140 mmol/L (136-145) 02/01/24 03:15 Corrected Sodium 143 mmol/L (136-145) 02/01/24 03:15 Potassium 3.5 mmol/L (3.5-5.1) 02/01/24 03:15 Chloride 102 mmol/L (98-107) 02/01/24 03:15 Carbon Dioxide 26.0 mmol/L (21-32) 02/01/24 03:15 BUN 16 mg/dL (7-18) 02/01/24 03:15 Creatinine 0.94 mg/dL (0.70-1.30) 02/01/24 03:15 Est GFR (MDRD) Af Amer > 60 (>60) 02/01/24 03:15 Est GFR (MDRD) Non-Af > 60 (>60) 02/01/24 03:15 Glucose 205 mg/dL (65-99) H 02/01/24 03:15 Hemoglobin A1c 5.8 % 02/01/24 03:15 Lactic Acid 1.4 mmol/L (0.4-2.0) 02/01/24 03:30 Calcium 8.4 mg/dL (8.5-10.1) L 02/01/24 03:15 Corrected Calcium TNP 02/01/24 03:15 Total Bilirubin 0.80 mg/dL (0.2-1.0) 02/01/24 03:15 AST 34 Units/L (15-37) 02/01/24 03:15 ALT 63 Units/L (12-78) 02/01/24 03:15 Alkaline Phosphatase 92 Units/L (46-116) 02/01/24 03:15 Creatine Kinase 571 Units/L (39-308) H 02/01/24 03:15 Troponin I High Sens 13.5 ng/L (4.0-60.0) 02/01/24 03:15 B-Natriuretic Peptide 49.7 pg/mL (0-79) 02/01/24 03:15 Total Protein 7.4 g/dL (6.4-8.2) 02/01/24 03:15 Albumin 4.0 g/dL (3.4-5.0) 02/01/24 03:15 Globulin 3.4 g/dL (2.5-4.5) 02/01/24 03:15 Albumin/Globulin Ratio 1.2 Ratio (1.1-2.1) 02/01/24 03:15 SARS-CoV-2 (PCR) Negative (NEGATIVE) 02/01/24 03:13 Influenza Type A (PCR) Negative (NEGATIVE) 02/01/24 03:13 Influenza Type B (PCR) Negative (NEGATIVE) 02/01/24 03:13 RSV (PCR) Negative (NEGATIVE) 02/01/24 03:13 S. pyogenes (TEM-PCR) Not detected (NOT DETECT) 02/01/24 03:13 Opioid Opioid Risk Tool Age (Emanuel box if 16-45): No History of Preadolescent Sexual Abuse: No Total: 0 Total Score Risk Category: Low Risk Copyright: Tavo predicting aberrant behaviors Discharge Plan Diagnosis Discharge Problem: Bilateral pneumonia, Hypoxia Discharge Plan Patient Disposition: 09 ADMITTED INPATIENT Condition: Stable Orders to Discharge Patient Discharge Orders: Transfer (Routine); Ordered 02/01/24 Ordered By: King Crawford ADDITIONAL NOTES Additional Notes Additional Notes: Accepted by Dr Lara at [id number]
[2024-02-01] MEDS: ZITHROMAX INJ 500 MG VIAL 500 MG in D5W 250 ML IV 250 ML IV SCH (04:24)
[2024-02-01] MEDS ORDERED: SALINE 3% 15 ML NEB TX ONE (04:45)
[2024-02-01] MEDS: SALINE 3% 15 ML NEB TX NEB ONE (05:05)
[2024-02-01] MEDS ORDERED: CONSULT PHARMACY - POTASSIUM & MAGNESIUM XX SCH (06:00)
--- NOTE | 2024-02-01 06:02 | RAD ---
EXAM:Two-view chestHISTORY:Shortness of breathCOMPARISON:12/14/2022FINDINGS:Hear t size is normal. Mariel are normal. Lungs well inflated and free of acute infiltrates. No pneumothorax or pleural effusions identified. Bony thorax is unremarkable.IMPRESSION:No significant abnormality identifiedTHIS IS AN ELECTRONICALLY VERIFIED FINAL [id number]/01/2024 5:59 AM - Electronically signed by Kimani Mckenzie MD
[2024-02-01] MEDS: MAG-OX TAB PO SCH (08:45)
[2024-02-01] MEDS: K-DUR TAB 20 MEQ PO SCH (08:46)
[2024-02-01] MEDS: PULMICORT NEB TX 0.5 MG NEB SCH (09:29)
[2024-02-01] MEDS: DUONEB 0.5 MG/3 MG (3 mL) NEB SCH (09:29)
[2024-02-01] MEDS: FLOMAX PO SCH (09:42)
[2024-02-01] MEDS: ZIAC 5/6.25 MG PO SCH (09:42)
[2024-02-01] MEDS: ALPRAZOLAM ODT PO PRN (09:48)
--- NOTE | 2024-02-01 10:24 | DR.H&P ---
H&P History & Physical for Day of: H&P Date: 02/01/24 Chief Complaint Chief Complaint: Shortness of breath History of Present Illness History of Present Illness: Patient is a 68-year-old male with past medical history of Hypertension and Anxiety presenting with shortness of breath that been gradually worsening over the past 2 days. He reports having fevers and chills. This morning he is resting in bed and does report some improvement. He is currently on 3L nasal cannula. Labs/imaging: WBC 19.5, hemoglobin 14.9, platelets 132, sodium 140, potassium 3.5, creatinine 0.94, glucose 205, lactic acid 1.4, troponin negative, D-dimer negative, RSV/flu/COVID-negative, strep negative, AIT pending, blood cultures pending, ABG: pH 7.41, pCO2 39, pO2 59, HCO3 24, O2 sat of 90% on FiO2 28%. Patient was given a dose of Rocephin and started on azithromycin. Will continue current antibiotics. Restart home medications. Wean/titrate supplemental oxygen as tolerated. Scheduled bronchodilators. Incentive spirometer. Will also get CT of the chest with contrast for further evaluation. Otherwise continue current treatment plan. Continue closely monitor and follow-up labs/imaging. Past Medical History Past Medical History: Anxiety and Hypertension Past Surgical History Surgical History: Ortho Surgery Additional Surgical History: BACK SURGERY X 2 Family History Family Medical History: Heart Failure and Hypertension Social History Does patient currently use any type of tobacco product: Yes Type of Tobacco Use: Cigarettes Alcohol Use: None Drug Use: None Medications Home Medications: Home Medications Medication Instructions Recorded Confirmed Type alprazolam 1 mg tablet 1 mg PO QDAY PRN 12/11/22 02/01/24 History aspirin 81 mg chewable tablet 81 mg PO DAILY 12/11/22 02/01/24 History bisoprolol 5 1 tab PO BID 12/11/22 02/01/24 History mg-hydrochlorothiazide 6.25 mg tablet tamsulosin 0.4 mg capsule 0.4 mg PO QDAY 02/01/24 02/01/24 History Allergies Allergies Allergy/AdvReac Type Severity Reaction Status Date / Time Sulfa (Sulfonamide Allergy Verified 02/01/24 04:05 Antibiotics) [SULFA] Labs 02/01/24 03:15 02/01/24 03:15 Labs: Laboratory WBC 19.5 X10^3/uL (3.6-10.0) H 02/01/24 03:15 RBC 4.48 X10^6/uL (4.7-6.0) L 02/01/24 03:15 Hgb 14.9 g/dL (13.5-18.0) 02/01/24 03:15 Hct 43.5 % (42.0-54.0) 02/01/24 03:15 MCV 97.2 fL (80.0-100.0) 02/01/24 03:15 MCH 33.3 pg (27.0-34.0) 02/01/24 03:15 MCHC 34.3 g/dL (33.0-35.0) 02/01/24 03:15 RDW 13.2 % (11.6-16.5) 02/01/24 03:15 Plt Count 132 X10^3/uL (150.0-450.0) L 02/01/24 03:15 Plt Count Comment Decreased (ADEQUATE) 02/01/24 03:15 MPV 9.6 fL (7.4-11.0) 02/01/24 03:15 Neut % (Auto) 90.3 % (42.0-75.0) H 02/01/24 03:15 Lymph % (Auto) 2.1 % (21.0-51.0) L 02/01/24 03:15 [place] % (Auto) 7.2 % (0.0-13.0) 02/01/24 03:15 Eos % (Auto) 0.0 % (0.9-2.9) L 02/01/24 03:15 Baso % (Auto) 0.4 % (0.2-1.0) 02/01/24 03:15 Neut # (Auto) 17.6 x10^3/uL (2.2-4.8) H 02/01/24 03:15 Lymph # (Auto) 0.4 X10^3/uL (1.3-2.9) L 02/01/24 03:15 [place] # (Auto) 1.4 x10^3/uL (0.3-0.8) H 02/01/24 03:15 Eos # (Auto) 0.0 x10^3/uL (0.0-0.2) 02/01/24 03:15 Baso # (Auto) 0.1 X10^3/uL (0.0-0.1) 02/01/24 03:15 Absolute Nucleated RBC 0.0 /100WBC 02/01/24 03:15 Total Counted 100 02/01/24 03:15 Neutrophils % (Manual) 83 % (39-76) H 02/01/24 03:15 Band Neutrophils % 6 % (0-10) 02/01/24 03:15 Lymphocytes % (Manual) 3 % (13-43) L 02/01/24 03:15 Monocytes % (Manual) 6 % (4-9) 02/01/24 03:15 Metamyelocytes % 2 02/01/24 03:15 Plt Morphology Comment Normal (NORMAL) 02/01/24 03:15 RBC Morphology Abnormal (NORMAL) 02/01/24 03:15 Stomatocytes Present 02/01/24 03:15 PT 14.3 SECONDS (11.8-14.3) 02/01/24 03:15 INR Target Range - 02/01/24 03:15 INR 1.13 (0.8-1.3) 02/01/24 03:15 APTT 29.2 SECONDS (22.9-36.5) 02/01/24 03:15 PTT Comment - 02/01/24 03:15 D-Dimer 0.38 ug/ml (0.0-0.57) 02/01/24 03:15 Sample Site Lr 02/01/24 03:08 ABG pH 7.410 (7.35-7.45) 02/01/24 03:08 ABG pCO2 39.0 mmHg (35.0-45.0) 02/01/24 03:08 ABG pO2 59.0 mmHg (80.0-100.0) L 02/01/24 03:08 ABG HCO3 24.7 mmol/L (22-26) 02/01/24 03:08 ABG O2 Saturation 90.0 % (90-100) 02/01/24 03:08 ABG Base Excess 0.1 mmol/L (-2.0-2.0) 02/01/24 03:08 David Test Pos 02/01/24 03:08 A-a Gradient 92.0 mmHg 02/01/24 03:08 FiO2 28.0 02/01/24 03:08 Blood Gas Comments Carley well sw 02/01/24 03:08 Sodium 140 mmol/L (136-145) 02/01/24 03:15 Corrected Sodium 143 mmol/L (136-145) 02/01/24 03:15 Potassium 3.5 mmol/L (3.5-5.1) 02/01/24 03:15 Chloride 102 mmol/L (98-107) 02/01/24 03:15 Carbon Dioxide 26.0 mmol/L (21-32) 02/01/24 03:15 BUN 16 mg/dL (7-18) 02/01/24 03:15 Creatinine 0.94 mg/dL (0.70-1.30) 02/01/24 03:15 Est GFR (MDRD) Af Amer > 60 (>60) 02/01/24 03:15 Est GFR (MDRD) Non-Af > 60 (>60) 02/01/24 03:15 Glucose 205 mg/dL (65-99) H 02/01/24 03:15 Hemoglobin A1c 5.8 % 02/01/24 03:15 Lactic Acid 1.4 mmol/L (0.4-2.0) 02/01/24 03:30 Calcium 8.4 mg/dL (8.5-10.1) L 02/01/24 03:15 Corrected Calcium TNP 02/01/24 03:15 Magnesium 1.5 mg/dL (2.0-2.9) L 02/01/24 03:15 Total Bilirubin 0.80 mg/dL (0.2-1.0) 02/01/24 03:15 AST 34 Units/L (15-37) 02/01/24 03:15 ALT 63 Units/L (12-78) 02/01/24 03:15 Alkaline Phosphatase 92 Units/L (46-116) 02/01/24 03:15 Creatine Kinase 571 Units/L (39-308) H 02/01/24 03:15 Troponin I High Sens 13.5 ng/L (4.0-60.0) 02/01/24 03:15 B-Natriuretic Peptide 49.7 pg/mL (0-79) 02/01/24 03:15 Total Protein 7.4 g/dL (6.4-8.2) 02/01/24 03:15 Albumin 4.0 g/dL (3.4-5.0) 02/01/24 03:15 Globulin 3.4 g/dL (2.5-4.5) 02/01/24 03:15 Albumin/Globulin Ratio 1.2 Ratio (1.1-2.1) 02/01/24 03:15 SARS-CoV-2 (PCR) Negative (NEGATIVE) 02/01/24 03:13 Influenza Type A (PCR) Negative (NEGATIVE) 02/01/24 03:13 Influenza Type B (PCR) Negative (NEGATIVE) 02/01/24 03:13 RSV (PCR) Negative (NEGATIVE) 02/01/24 03:13 S. pyogenes (TEM-PCR) Not detected (NOT DETECT) 02/01/24 03:13 Review of Systems Constitutional: Fever and Chills Eyes: No Symptoms Reported ENT: No Symptoms Reported Respiratory: Cough, Shortness of Breath and Sputum Cardiovascular: No Symptoms Reported Gastrointestinal: No Symptoms Reported Genitourinary: No Symptoms Reported Musculoskeletal: No Symptoms Reported Skin: No Symptoms Reported Neurological: No Symptoms Reported Physical Exam Vital Signs: Vital Signs Temperature 99 F Temperature 98.9 F Temperature 98.9 F Temperature 100.2 F Pulse Rate [Left Brachial] 99 Pulse Rate [Left Brachial] 109 Pulse Rate 99 Pulse Rate 111 Pulse Rate 111 Pulse Rate 106 Pulse Rate 108 Pulse Rate 105 Pulse Rate 116 Pulse Rate 116 Pulse Rate 116 Pulse Rate 125 Respiratory Rate 21 Respiratory Rate 22 Respiratory Rate 22 Respiratory Rate 38 Respiratory Rate 27 Respiratory Rate 41 Respiratory Rate 43 Respiratory Rate 41 Respiratory Rate 28 Blood Pressure [Left Arm] 136/71 Blood Pressure [Left Arm] 142/68 Blood Pressure 143/72 Blood Pressure 143/72 Blood Pressure 143/73 Blood Pressure 148/81 Blood Pressure 137/79 Blood Pressure 141/72 O2 Sat by Pulse Oximetry 93 O2 Sat by Pulse Oximetry 93 O2 Sat by Pulse Oximetry 92 O2 Sat by Pulse Oximetry 92 O2 Sat by Pulse Oximetry 90 O2 Sat by Pulse Oximetry 91 O2 Sat by Pulse Oximetry 94 O2 Sat by Pulse Oximetry 93 O2 Sat by Pulse Oximetry 93 O2 Sat by Pulse Oximetry 92 O2 Sat by Pulse Oximetry 86 Oriented: Normal Eyes: Normal Ear: Normal Nose: Normal Throat: Normal Respiratory: Diminished Throughout Cardiovascular: Normal : Normal Auscultation: Bowel Sounds: Normal Palpation: Normal Tenderness: Normal Skin: Normal Musculoskeletal: Normal Psychiatric: Normal Mood Description: Calm and Appropriate Affect: Normal Speech Pattern: Clear and Appropriate Assessment/Plan (1) Bronchopneumonia: Status: Acute Plan: IV antibiotics supplemental oxygen, bronchodilators (2) Hypoxia: Status: Acute (3) HTN (hypertension): Qualifiers: Hypertension type: primary hypertension Qualified Code(s): I10 - Essential (primary) hypertension Status: Chronic (4) Generalized anxiety disorder: Status: Chronic Review H&P Reviewed: Yes Patient was examined?: Yes
[2024-02-01] MEDS ORDERED: OMNIPAQUE 350 mg/mL 100 mL BTL 100 ML ONE (11:06)
[2024-02-01] MEDS: ROCEPHIN VIAL 1 GRAM 1 G in NS 100 ML IV 100 ML IV SCH (11:50)
[2024-02-01] MEDS: NS 250 ML IV 250 ML IV ONE (12:00)
--- NOTE | 2024-02-01 12:07 | CT ---
EXAM:CHEST WITH CONTRASTHISTORY:pneumonia;COMPARISON:CT chest 12/13/2022TECHNIQUE:Multiple CT axial images of the chest were obtained with IV contrast. Coronal and sagittal images were reconstructed. Dose reduction techniques included Automated Exposure Control (AEC) and adjustment of mA and kV.FINDINGS:The heart is normal in size. Atherosclerotic calcification is present in the coronary arteries. The pulmonary artery and aorta have a normal caliber. No mediastinal mass or significant lymphadenopathy.The thyroid has a normal size and configuration. No axillary mass or significant axillary lymphadenopathy is identified.Lungs are well inflated with no pleural effusion. But there is ground-glass and airspace opacity in the lung bases suggesting pneumonia. This is not visible on the chest radiography 02/01/2024. Calcified granuloma seen in the right apex and right upper lobe. Few other tiny nodules are stable.Diffuse decreased density of the liver is compatible with hepatic steatosis.There is no significant bone abnormality.IMPRESSION:1. Findings suggesting basilar pneumonia2. Hepatic steatosisTHIS IS AN ELECTRONICALLY VERIFIED FINAL [id number]/01/2024 11:56 AM - Electronically signed by Vick Hernandez MD
[2024-02-02 06:02] LABS: BASOPHILS # (AUTO) 0.1 X10^3/uL (0.0-0.1); BASOPHILS % (AUTO) 0.3 % (0.2-1.0); HEMATOCRIT 40.2 % (42.0-54.0); LYMPHOCYTES # (AUTO) 1.4 X10^3/uL (1.3-2.9); LYMPHOCYTES % (AUTO) 7.4 % (21.0-51.0); MEAN CORPUSCULAR HEMOGLOBIN 34.1 pg (27.0-34.0); MEAN CORPUSCULAR HGB CONC 34.7 g/dL (33.0-35.0); MEAN CORPUSCULAR VOLUME 98.3 fL (80.0-100.0); MEAN PLATELET VOLUME 10.2 fL (7.4-11.0); MONOCYTES # (AUTO) 1.5 x10^3/uL (0.3-0.8); MONOCYTES % (AUTO) 8.1 % (0.0-13.0); NEUTROPHILS # (AUTO) 15.7 x10^3/uL (2.2-4.8); NEUTROPHILS % (AUTO) 84.2 % (42.0-75.0); PLATELET COUNT 125 X10^3/uL (150.0-450.0); RED BLOOD COUNT 4.09 X10^6/uL (4.7-6.0); RED CELL DISTRIBUTION WIDTH 12.8 % (11.6-16.5); WHITE BLOOD COUNT 18.6 X10^3/uL (3.6-10.0)
[2024-02-02 06:18] LABS: ALANINE AMINOTRANSFERASE 43 Units/L (12-78); ALBUMIN 3.4 g/dL (3.4-5.0); ALKALINE PHOSPHATASE 79 Units/L (46-116); ASPARTATE AMINO TRANSFERASE 25 Units/L (15-37); BLOOD UREA NITROGEN 20 mg/dL (7-18); CALCIUM 8.9 mg/dL (8.5-10.1); CARBON DIOXIDE 29.4 mmol/L (21-32); CHLORIDE 102 mmol/L (98-107); COR NA(FOR HYPERGLY) 140 mmol/L (136-145); CREATININE 0.94 mg/dL (0.70-1.30); GLUCOSE 124 mg/dL (65-99); MAGNESIUM 2.2 mg/dL (2.0-2.9); POTASSIUM 3.9 mmol/L (3.5-5.1); SODIUM 139 mmol/L (136-145); TOTAL PROTEIN 6.9 g/dL (6.4-8.2); eGFR NON BLACK RACES > 60 (>60)
[2024-02-02] MEDS ORDERED: TYLENOL 325 MG TAB PO PRN (07:24)
--- NOTE | 2024-02-02 09:54 | PCM.PROG ---
Progress Note Progress Note for Day of Date of Exam: 02/02/24 Subjective Subjective: Patient is a 68-year-old male with past medical history of Hypertension and Anxiety admitted for bilateral pneumonia. This morning he is resting in bed. Reports he feels a lot better and is less short of breath. He is using I/S. He did not have his nasal cannula on in the room. Labs/imaging: WBC 18.6, hemoglobin 14, platelets 125, sodium 139, potassium 3.9, creatinine 0.94, glucose 124, AIT pending, blood cultures pending. CT chest revealed: 1. Findings suggesting basilar pneumonia. Pt is currently receiving IV antibiotics: Rocephin and azithromycin. Will continue current antibiotics. Home medications have been resumed. Wean/titrate supplemental oxygen as tolerated. Will do walk test today. Scheduled bronchodilators. Incentive spirometer. Otherwise continue current treatment plan. Continue closely monitor and follow-up labs/imaging. Past Medical Family Social History Allergies: Allergies Sulfa (Sulfonamide Antibiotics) [SULFA] Allergy (Verified 02/01/24 04:05) Review of Systems ROS changes noted: see HPI Vital Signs and I&O's Vital Signs: Vital Signs Temperature 97.6 F Temperature 98.1 F Pulse Rate [Left Brachial] 77 Pulse Rate [Left Brachial] 68 Pulse Rate 84 Respiratory Rate 22 Respiratory Rate 18 Blood Pressure [Left Arm] 137/65 Blood Pressure [Left Arm] 131/63 O2 Sat by Pulse Oximetry 94 O2 Sat by Pulse Oximetry 94 O2 Sat by Pulse Oximetry 96 Intake and Output: Intake & Output 01/30/24 01/31/24 02/01/24 02/02/24 23:59 23:59 23:59 23:59 Intake Total 610 / 610 242 / 242 Output Total 200 / 200 Balance 410 / 410 242 / 242 Physical Exam Oriented: Normal Eyes: Normal Ear: Normal Nose: Normal Throat: Normal Cardiovascular: Normal : Normal Auscultation: Bowel Sounds: Normal Tenderness: Normal Skin: Normal Musculoskeletal: Normal Psychiatric: Normal Mood Description: Calm and Appropriate Affect: Normal Speech Pattern: Clear and Appropriate Laboratory and Diagnostics 02/02/24 05:20 02/02/24 05:20 Labs: Laboratory WBC 18.6 X10^3/uL (3.6-10.0) H 02/02/24 05:20 RBC 4.09 X10^6/uL (4.7-6.0) L 02/02/24 05:20 Hgb 14.0 g/dL (13.5-18.0) 02/02/24 05:20 Hct 40.2 % (42.0-54.0) L 02/02/24 05:20 MCV 98.3 fL (80.0-100.0) 02/02/24 05:20 MCH 34.1 pg (27.0-34.0) H 02/02/24 05:20 MCHC 34.7 g/dL (33.0-35.0) 02/02/24 05:20 RDW 12.8 % (11.6-16.5) 02/02/24 05:20 Plt Count 125 X10^3/uL (150.0-450.0) L 02/02/24 05:20 Plt Count Comment Decreased (ADEQUATE) 02/01/24 03:15 MPV 10.2 fL (7.4-11.0) 02/02/24 05:20 Neut % (Auto) 84.2 % (42.0-75.0) H 02/02/24 05:20 Lymph % (Auto) 7.4 % (21.0-51.0) L 02/02/24 05:20 [place] % (Auto) 8.1 % (0.0-13.0) 02/02/24 05:20 Eos % (Auto) 0.0 % (0.9-2.9) L 02/02/24 05:20 Baso % (Auto) 0.3 % (0.2-1.0) 02/02/24 05:20 Neut # (Auto) 15.7 x10^3/uL (2.2-4.8) H 02/02/24 05:20 Lymph # (Auto) 1.4 X10^3/uL (1.3-2.9) 02/02/24 05:20 [place] # (Auto) 1.5 x10^3/uL (0.3-0.8) H 02/02/24 05:20 Eos # (Auto) 0.0 x10^3/uL (0.0-0.2) 02/02/24 05:20 Baso # (Auto) 0.1 X10^3/uL (0.0-0.1) 02/02/24 05:20 Absolute Nucleated RBC 0.0 /100WBC 02/02/24 05:20 Total Counted 100 02/01/24 03:15 Neutrophils % (Manual) 83 % (39-76) H 02/01/24 03:15 Band Neutrophils % 6 % (0-10) 02/01/24 03:15 Lymphocytes % (Manual) 3 % (13-43) L 02/01/24 03:15 Monocytes % (Manual) 6 % (4-9) 02/01/24 03:15 Metamyelocytes % 2 02/01/24 03:15 Plt Morphology Comment Normal (NORMAL) 02/01/24 03:15 RBC Morphology Abnormal (NORMAL) 02/01/24 03:15 Stomatocytes Present 02/01/24 03:15 PT 14.3 SECONDS (11.8-14.3) 02/01/24 03:15 INR Target Range - 02/01/24 03:15 INR 1.13 (0.8-1.3) 02/01/24 03:15 APTT 29.2 SECONDS (22.9-36.5) 02/01/24 03:15 PTT Comment - 02/01/24 03:15 D-Dimer 0.38 ug/ml (0.0-0.57) 02/01/24 03:15 Sample Site Lr 02/01/24 03:08 ABG pH 7.410 (7.35-7.45) 02/01/24 03:08 ABG pCO2 39.0 mmHg (35.0-45.0) 02/01/24 03:08 ABG pO2 59.0 mmHg (80.0-100.0) L 02/01/24 03:08 ABG HCO3 24.7 mmol/L (22-26) 02/01/24 03:08 ABG O2 Saturation 90.0 % (90-100) 02/01/24 03:08 ABG Base Excess 0.1 mmol/L (-2.0-2.0) 02/01/24 03:08 David Test Pos 02/01/24 03:08 A-a Gradient 92.0 mmHg 02/01/24 03:08 FiO2 28.0 02/01/24 03:08 Blood Gas Comments Carley well sw 02/01/24 03:08 Sodium 139 mmol/L (136-145) 02/02/24 05:20 Corrected Sodium 140 mmol/L (136-145) 02/02/24 05:20 Potassium 3.9 mmol/L (3.5-5.1) 02/02/24 05:20 Chloride 102 mmol/L (98-107) 02/02/24 05:20 Carbon Dioxide 29.4 mmol/L (21-32) 02/02/24 05:20 BUN 20 mg/dL (7-18) H 02/02/24 05:20 Creatinine 0.94 mg/dL (0.70-1.30) 02/02/24 05:20 Est GFR (MDRD) Af Amer > 60 (>60) 02/02/24 05:20 Est GFR (MDRD) Non-Af > 60 (>60) 02/02/24 05:20 Glucose 124 mg/dL (65-99) H 02/02/24 05:20 Hemoglobin A1c 5.8 % 02/01/24 03:15 Lactic Acid 1.4 mmol/L (0.4-2.0) 02/01/24 03:30 Calcium 8.9 mg/dL (8.5-10.1) 02/02/24 05:20 Corrected Calcium TNP 02/02/24 05:20 Magnesium 2.2 mg/dL (2.0-2.9) 02/02/24 05:20 Total Bilirubin 1.00 mg/dL (0.2-1.0) 02/02/24 05:20 AST 25 Units/L (15-37) 02/02/24 05:20 ALT 43 Units/L (12-78) 02/02/24 05:20 Alkaline Phosphatase 79 Units/L (46-116) 02/02/24 05:20 Creatine Kinase 571 Units/L (39-308) H 02/01/24 03:15 Troponin I High Sens 13.5 ng/L (4.0-60.0) 02/01/24 03:15 B-Natriuretic Peptide 49.7 pg/mL (0-79) 02/01/24 03:15 Total Protein 6.9 g/dL (6.4-8.2) 02/02/24 05:20 Albumin 3.4 g/dL (3.4-5.0) 02/02/24 05:20 Globulin 3.5 g/dL (2.5-4.5) 02/02/24 05:20 Albumin/Globulin Ratio 1.0 Ratio (1.1-2.1) L 02/02/24 05:20 SARS-CoV-2 (PCR) Negative (NEGATIVE) 02/01/24 03:13 Influenza Type A (PCR) Negative (NEGATIVE) 02/01/24 03:13 Influenza Type B (PCR) Negative (NEGATIVE) 02/01/24 03:13 RSV (PCR) Negative (NEGATIVE) 02/01/24 03:13 S. pyogenes (TEM-PCR) Not detected (NOT DETECT) 02/01/24 03:13 Plan (1) Bronchopneumonia: Status: Acute Plan: IV antibiotics supplemental oxygen, bronchodilators (2) Hypoxia: Status: Acute (3) HTN (hypertension): Status: Chronic Qualifiers: Hypertension type: primary hypertension Qualified Code(s): I10 - Essential (primary) hypertension (4) Generalized anxiety disorder: Status: Chronic
[2024-02-03 04:27] VITALS: O2SAT 95
[2024-02-03 06:52] LABS: MEAN PLATELET VOLUME 10.5 fL (7.4-11.0)
[2024-02-03 07:05] LABS: BASOPHILS % (AUTO) 0.4 % (0.2-1.0); EOSINOPHILS # (AUTO) 0.2 x10^3/uL (0.0-0.2); EOSINOPHILS % (AUTO) 1.2 % (0.9-2.9); HEMATOCRIT 42.2 % (42.0-54.0); HEMOGLOBIN 14.4 g/dL (13.5-18.0); LYMPHOCYTES # (AUTO) 1.4 X10^3/uL (1.3-2.9); LYMPHOCYTES % (AUTO) 10.5 % (21.0-51.0); MEAN CORPUSCULAR HEMOGLOBIN 33.4 pg (27.0-34.0); MEAN CORPUSCULAR HGB CONC 34.2 g/dL (33.0-35.0); MEAN CORPUSCULAR VOLUME 97.8 fL (80.0-100.0); MONOCYTES # (AUTO) 1.3 x10^3/uL (0.3-0.8); MONOCYTES % (AUTO) 9.6 % (0.0-13.0); NEUTROPHILS # (AUTO) 10.3 x10^3/uL (2.2-4.8); NEUTROPHILS % (AUTO) 78.3 % (42.0-75.0); PLATELET COUNT 150 X10^3/uL (150.0-450.0); RED BLOOD COUNT 4.31 X10^6/uL (4.7-6.0); RED CELL DISTRIBUTION WIDTH 13.2 % (11.6-16.5); WHITE BLOOD COUNT 13.2 X10^3/uL (3.6-10.0)
[2024-02-03 07:26] LABS: ALANINE AMINOTRANSFERASE 52 Units/L (12-78); ALBUMIN 3.2 g/dL (3.4-5.0); ALKALINE PHOSPHATASE 82 Units/L (46-116); ASPARTATE AMINO TRANSFERASE 31 Units/L (15-37); BLOOD UREA NITROGEN 20 mg/dL (7-18); CALCIUM 8.9 mg/dL (8.5-10.1); CARBON DIOXIDE 27.6 mmol/L (21-32); CHLORIDE 101 mmol/L (98-107); COR CA(FOR HYPOALB) 9.5 mg/dL (8.5-10.1); CREATININE 0.84 mg/dL (0.70-1.30); GLUCOSE 87 mg/dL (65-99); POTASSIUM 3.9 mmol/L (3.5-5.1); SODIUM 138 mmol/L (136-145); TOTAL PROTEIN 6.7 g/dL (6.4-8.2); eGFR NON BLACK RACES > 60 (>60)
[2024-02-03 07:59] VITALS: RESP 20
[2024-02-03 14:14] VITALS: BP 113/67; PULSE 78; TEMP 98.6
--- NOTE | 2024-02-05 09:53 | W.DIS.FURT ---
Summary of Discharge Discharge Summary of Date Date of Exam: 02/03/24 Admission Date Date of Admission: 02/01/24 Admission Diagnosis Patient Problems (Updated 02/01/24 @ 04:27 by King Crawford) Bilateral pneumonia (Acute) J18.9 Hypoxia (Acute) R09.02 Hospital Course: Mr Tucker is a 68y/o male with a PMH of Hypertension and Anxiety presenting with shortness of breath that been gradually worsening over the past 2 days. He reports having fevers and chills. ER work up showed elevated WBC, trop (-), d- dimer (-), RSV/Flu/COVID negative. CXR showed no acute changes. He was requiring 3L O2 via NC. He was started on hydration, IV antibiotics and bronchodilators. Home medicatons were resumed. His labs were monitored daily and electrolytes replaced as needed. CT-chest was done which showed bilateral pneumonia. Patient was feeling better and ambulating. He did qualify for home O2. He will be discharged on PO abx and will f/u with PCP as scheduled. He was stable for discharge. Vital Signs: Vital Signs (72 hours) 02/01/24 03:16 02/01/24 03:18 02/01/24 03:22 Temperature 100.2 F H Pulse Rate 125 H 116 H Pulse Rate [Left Brachial] Respiratory Rate 28 H 41 H Blood Pressure 141/72 Blood Pressure [Left Arm] O2 Sat by Pulse Oximetry 86 L Oxygen Delivery Method Oxygen Flow Rate FIO2% 02/01/24 03:19 02/01/24 03:21 02/01/24 03:30 Temperature Pulse Rate 116 H 116 H Pulse Rate [Left Brachial] Respiratory Rate 43 H 41 H Blood Pressure 137/79 Blood Pressure [Left Arm] O2 Sat by Pulse Oximetry 92 L 93 L Oxygen Delivery Method Nasal Cannula Nasal Cannula Oxygen Flow Rate 3 3 FIO2% 02/01/24 03:30 02/01/24 03:59 02/01/24 04:00 Temperature Pulse Rate 105 H 108 H Pulse Rate [Left Brachial] Respiratory Rate 27 H Blood Pressure 148/81 Blood Pressure [Left Arm] O2 Sat by Pulse Oximetry 93 L 94 L Oxygen Delivery Method Oxygen Flow Rate FIO2% 02/01/24 04:00 02/01/24 04:30 02/01/24 04:30 Temperature Pulse Rate 106 H Pulse Rate [Left Brachial] Respiratory Rate 38 H Blood Pressure 143/73 143/72 Blood Pressure [Left Arm] O2 Sat by Pulse Oximetry 91 L Oxygen Delivery Method Nasal Cannula Oxygen Flow Rate 3 FIO2% 02/01/24 05:03 02/01/24 05:11 02/01/24 05:00 Temperature 98.9 F 98.9 F Pulse Rate 111 H Pulse Rate [Left Brachial] 109 H Respiratory Rate 22 22 Blood Pressure 143/72 Blood Pressure [Left Arm] 142/68 O2 Sat by Pulse Oximetry 90 L 92 L Oxygen Delivery Method Nasal Cannula Nasal Cannula Nasal Cannula Oxygen Flow Rate 2 2 2 FIO2% 28 02/01/24 05:05 02/01/24 05:33 02/01/24 05:05 Temperature Pulse Rate 111 H Pulse Rate [Left Brachial] Respiratory Rate Blood Pressure Blood Pressure [Left Arm] O2 Sat by Pulse Oximetry 92 L Oxygen Delivery Method Nasal Cannula Nasal Cannula Oxygen Flow Rate 3 3 FIO2% 32 02/01/24 07:00 02/01/24 09:30 02/01/24 09:30 Temperature Pulse Rate 99 H Pulse Rate [Left Brachial] Respiratory Rate Blood Pressure Blood Pressure [Left Arm] O2 Sat by Pulse Oximetry 93 L Oxygen Delivery Method Nasal Cannula Nasal Cannula Oxygen Flow Rate 3 3 FIO2% 32 02/01/24 08:00 02/01/24 12:00 02/01/24 16:00 Temperature 99 F 98.6 F 98.6 F Pulse Rate Pulse Rate [Left Brachial] 99 H 88 89 Respiratory Rate 21 21 20 Blood Pressure Blood Pressure [Left Arm] 136/71 131/61 130/63 O2 Sat by Pulse Oximetry 93 L 92 L 94 L Oxygen Delivery Method Nasal Cannula Nasal Cannula Nasal Cannula Oxygen Flow Rate 3 3 3 FIO2% 02/01/24 19:00 02/01/24 20:00 02/01/24 20:26 Temperature 98.4 F Pulse Rate Pulse Rate [Left Brachial] 90 Respiratory Rate 19 Blood Pressure Blood Pressure [Left Arm] 130/60 O2 Sat by Pulse Oximetry 94 L Oxygen Delivery Method Nasal Cannula Nasal Cannula Nasal Cannula Oxygen Flow Rate 3 3 3 FIO2% 32 02/01/24 20:26 02/01/24 23:40 02/02/24 00:07 Temperature 98.4 F Pulse Rate 94 H 90 Pulse Rate [Left Brachial] 87 Respiratory Rate 21 Blood Pressure Blood Pressure [Left Arm] 141/65 O2 Sat by Pulse Oximetry 95 94 L 93 L Oxygen Delivery Method Nasal Cannula Oxygen Flow Rate 3 FIO2% 02/02/24 04:00 02/02/24 06:04 02/02/24 07:21 Temperature 98.1 F 97.6 F Pulse Rate 84 Pulse Rate [Left Brachial] 68 77 Respiratory Rate 18 22 Blood Pressure Blood Pressure [Left Arm] 131/63 137/65 O2 Sat by Pulse Oximetry 96 94 L 94 L Oxygen Delivery Method Nasal Cannula Nasal Cannula Oxygen Flow Rate 3 3 FIO2% 02/02/24 07:00 02/02/24 09:10 02/02/24 12:00 Temperature 98.4 F Pulse Rate Pulse Rate [Left Brachial] 78 Respiratory Rate 22 Blood Pressure Blood Pressure [Left Arm] 119/61 O2 Sat by Pulse Oximetry 96 Oxygen Delivery Method Nasal Cannula Room Air Nasal Cannula Oxygen Flow Rate 3 2 3 FIO2% 28 02/02/24 16:00 02/02/24 19:00 02/02/24 20:41 Temperature 98.2 F Pulse Rate Pulse Rate [Left Brachial] 90 Respiratory Rate 24 Blood Pressure Blood Pressure [Left Arm] 138/67 O2 Sat by Pulse Oximetry 93 L Oxygen Delivery Method Nasal Cannula Nasal Cannula Nasal Cannula Oxygen Flow Rate 3 3 3 FIO2% 32 02/02/24 20:42 02/02/24 20:00 02/03/24 00:00 Temperature 98.0 F 98.1 F Pulse Rate 75 Pulse Rate [Left Brachial] 86 83 Respiratory Rate 18 18 Blood Pressure Blood Pressure [Left Arm] 127/68 117/56 O2 Sat by Pulse Oximetry 93 L 94 L 94 L Oxygen Delivery Method Nasal Cannula Nasal Cannula Oxygen Flow Rate 3 3 FIO2% 02/03/24 04:00 02/03/24 07:00 02/03/24 06:00 Temperature 97.9 F 98.1 F Pulse Rate Pulse Rate [Left Brachial] 92 H 81 Respiratory Rate 19 20 Blood Pressure Blood Pressure [Left Arm] 115/65 140/66 O2 Sat by Pulse Oximetry 95 95 Oxygen Delivery Method Nasal Cannula Nasal Cannula Nasal Cannula Oxygen Flow Rate 3 3 3 FIO2% 02/03/24 09:09 Temperature Pulse Rate Pulse Rate [Left Brachial] Respiratory Rate Blood Pressure Blood Pressure [Left Arm] O2 Sat by Pulse Oximetry Oxygen Delivery Method Nasal Cannula Oxygen Flow Rate 3 FIO2% 32 Labs: Laboratory Last Values WBC 13.2 X10^3/uL (3.6-10.0) H 02/03/24 05:44 RBC 4.31 X10^6/uL (4.7-6.0) L 02/03/24 05:44 Hgb 14.4 g/dL (13.5-18.0) 02/03/24 05:44 Hct 42.2 % (42.0-54.0) 02/03/24 05:44 MCV 97.8 fL (80.0-100.0) 02/03/24 05:44 MCH 33.4 pg (27.0-34.0) 02/03/24 05:44 MCHC 34.2 g/dL (33.0-35.0) 02/03/24 05:44 RDW 13.2 % (11.6-16.5) 02/03/24 05:44 Plt Count 150 X10^3/uL (150.0-450.0) 02/03/24 05:44 Plt Count Comment Decreased (ADEQUATE) 02/01/24 03:15 MPV 10.5 fL (7.4-11.0) 02/03/24 05:44 Neut % (Auto) 78.3 % (42.0-75.0) H 02/03/24 05:44 Lymph % (Auto) 10.5 % (21.0-51.0) L 02/03/24 05:44 [place] % (Auto) 9.6 % (0.0-13.0) 02/03/24 05:44 Eos % (Auto) 1.2 % (0.9-2.9) 02/03/24 05:44 Baso % (Auto) 0.4 % (0.2-1.0) 02/03/24 05:44 Neut # (Auto) 10.3 x10^3/uL (2.2-4.8) H 02/03/24 05:44 Lymph # (Auto) 1.4 X10^3/uL (1.3-2.9) 02/03/24 05:44 [place] # (Auto) 1.3 x10^3/uL (0.3-0.8) H 02/03/24 05:44 Eos # (Auto) 0.2 x10^3/uL (0.0-0.2) 02/03/24 05:44 Baso # (Auto) 0.0 X10^3/uL (0.0-0.1) 02/03/24 05:44 Absolute Nucleated RBC 0.0 /100WBC 02/03/24 05:44 Total Counted 100 02/01/24 03:15 Neutrophils % (Manual) 83 % (39-76) H 02/01/24 03:15 Band Neutrophils % 6 % (0-10) 02/01/24 03:15 Lymphocytes % (Manual) 3 % (13-43) L 02/01/24 03:15 Monocytes % (Manual) 6 % (4-9) 02/01/24 03:15 Metamyelocytes % 2 02/01/24 03:15 Plt Morphology Comment Normal (NORMAL) 02/01/24 03:15 RBC Morphology Abnormal (NORMAL) 02/01/24 03:15 Stomatocytes Present 02/01/24 03:15 PT 14.3 SECONDS (11.8-14.3) 02/01/24 03:15 INR Target Range - 02/01/24 03:15 INR 1.13 (0.8-1.3) 02/01/24 03:15 APTT 29.2 SECONDS (22.9-36.5) 02/01/24 03:15 PTT Comment - 02/01/24 03:15 D-Dimer 0.38 ug/ml (0.0-0.57) 02/01/24 03:15 Sample Site Lr 02/01/24 03:08 ABG pH 7.410 (7.35-7.45) 02/01/24 03:08 ABG pCO2 39.0 mmHg (35.0-45.0) 02/01/24 03:08 ABG pO2 59.0 mmHg (80.0-100.0) L 02/01/24 03:08 ABG HCO3 24.7 mmol/L (22-26) 02/01/24 03:08 ABG O2 Saturation 90.0 % (90-100) 02/01/24 03:08 ABG Base Excess 0.1 mmol/L (-2.0-2.0) 02/01/24 03:08 David Test Pos 02/01/24 03:08 A-a Gradient 92.0 mmHg 02/01/24 03:08 FiO2 28.0 02/01/24 03:08 Blood Gas Comments Carley well sw 02/01/24 03:08 Sodium 138 mmol/L (136-145) 02/03/24 05:44 Corrected Sodium TNP 02/03/24 05:44 Potassium 3.9 mmol/L (3.5-5.1) 02/03/24 05:44 Chloride 101 mmol/L (98-107) 02/03/24 05:44 Carbon Dioxide 27.6 mmol/L (21-32) 02/03/24 05:44 BUN 20 mg/dL (7-18) H 02/03/24 05:44 Creatinine 0.84 mg/dL (0.70-1.30) 02/03/24 05:44 Est GFR (MDRD) Af Amer > 60 (>60) 02/03/24 05:44 Est GFR (MDRD) Non-Af > 60 (>60) 02/03/24 05:44 Glucose 87 mg/dL (65-99) 02/03/24 05:44 Hemoglobin A1c 5.8 % 02/01/24 03:15 Lactic Acid 1.4 mmol/L (0.4-2.0) 02/01/24 03:30 Calcium 8.9 mg/dL (8.5-10.1) 02/03/24 05:44 Corrected Calcium 9.5 mg/dL (8.5-10.1) 02/03/24 05:44 Magnesium 2.2 mg/dL (2.0-2.9) 02/02/24 05:20 Total Bilirubin 0.90 mg/dL (0.2-1.0) 02/03/24 05:44 AST 31 Units/L (15-37) 02/03/24 05:44 ALT 52 Units/L (12-78) 02/03/24 05:44 Alkaline Phosphatase 82 Units/L (46-116) 02/03/24 05:44 Creatine Kinase 571 Units/L (39-308) H 02/01/24 03:15 Troponin I High Sens 13.5 ng/L (4.0-60.0) 02/01/24 03:15 B-Natriuretic Peptide 49.7 pg/mL (0-79) 02/01/24 03:15 Total Protein 6.7 g/dL (6.4-8.2) 02/03/24 05:44 Albumin 3.2 g/dL (3.4-5.0) L 02/03/24 05:44 Globulin 3.5 g/dL (2.5-4.5) 02/03/24 05:44 Albumin/Globulin Ratio 0.9 Ratio (1.1-2.1) L 02/03/24 05:44 SARS-CoV-2 (PCR) Negative (NEGATIVE) 02/01/24 03:13 Influenza Type A (PCR) Negative (NEGATIVE) 02/01/24 03:13 Influenza Type B (PCR) Negative (NEGATIVE) 02/01/24 03:13 RSV (PCR) Negative (NEGATIVE) 02/01/24 03:13 S. pyogenes (TEM-PCR) Not detected (NOT DETECT) 02/01/24 03:13 Reason For Visit: BILATERAL COMMUNITY ACQUIRED PNEUMONIA, Discharge Diagnosis All Active Problems (Updated 02/01/24 @ 04:27 by King Crawford) Hypoxia (Acute) RSV infection (Acute) Acute bronchitis (Acute) HTN (hypertension) (Chronic) Generalized anxiety disorder (Chronic) Bronchopneumonia (Acute) Bilateral pneumonia (Acute) Hypoxia (Acute) Plan of Treatment: Continue with present treatment and follow up plan. Pt is to keep follow up appointment as instructed and take medications as ordered. Discharge Medications Discharge Medications: Sulfa (Sulfonamide Antibiotics) [SULFA] Allergy (Verified 02/01/24 04:05) CONTINUE taking the following medications tamsulosin 0.4 mg capsule 0.4 mg PO QDAY 02/01/24 [History] New Prescriptions albuterol sulfate 0.63 mg/3 mL solution for nebulization 0.63 mg (3 mL) inhalation QID PRN shortness of breath or wheezing 14 days #75 mL 02/03/24 [Rx] cefdinir 300 mg capsule 300 mg PO BID 5 days #10 caps 02/03/24 [Rx] Discharge Disposition Discharge Disposition: home Discharge Condition: stable Discharge Plan Discharge Plan Hospital Course: Mr Tucker is a 68y/o male with a PMH of Hypertension and Anxiety presenting with shortness of breath that been gradually worsening over the past 2 days. He reports having fevers and chills. ER work up showed elevated WBC, trop (-), d- dimer (-), RSV/Flu/COVID negative. CXR showed no acute changes. He was requiring 3L O2 via NC. He was started on hydration, IV antibiotics and bronchodilators. Home medicatons were resumed. His labs were monitored daily and electrolytes replaced as needed. CT-chest was done which showed bilateral pneumonia. Patient was feeling better and ambulating. He did qualify for home O2. He will be discharged on PO abx and will f/u with PCP as scheduled. He was stable for discharge. Patient Disposition: 01 HOME, SELF-CARE Condition: Stable Health Concerns: Post Hospitalization: new medications and changes needed to prevent readmission or further decline. Pt educated and given instructions on all concerns. Care Plan Goals: Problem: Pain/Alteration in Comfort Goal: Improve/ Resolve Pain; Achieve Pain Tolerance Instructions: Take pain medications as prescribed. Contact your primary care provider if your pain is unrelieved or worsens. Follow up with primary care provider as directed. Plan of Treatment: Continue with present treatment and follow up plan. Pt is to keep follow up appointment as instructed and take medications as ordered. Prescription drug monitoring program results: PDMP reviewed and no concerns identified Prescriptions: New cefdinir 300 mg capsule 300 mg PO BID 5 Days Qty: 10 0RF albuterol sulfate 0.63 mg/3 mL solution for nebulization 0.63 mg inhalation QID PRN (Reason: shortness of breath or wheezing) 14 Days Qty: 75 0RF Continued alprazolam 1 mg tablet 1 mg PO QDAY PRN bisoprolol-hydrochlorothiazide 5-6.25 mg tablet 1 tab PO BID aspirin 81 mg Tablet,Chewable 81 mg PO DAILY tamsulosin 0.4 mg capsule 0.4 mg PO QDAY Follow ups/Referrals Follow ups/Referrals: Alfred Mcelroy [STAFF PHYSICIAN] - 3 days (Office closed will open back up 02/04) Instructions Instructions: Community-Acquired Pneumonia, Adult, [facility] Stand Alone Forms: Excuse From Work or School, Find Help Web Site, Post Hospital Follow Up Care
== END 2024-02-03 12:55 | disposition home or self-care (01) | DRG 195 ==
LOC: ER 03:02 → MED/SURG 04:21
PROVIDERS: ADMIT Family Medicine; ATTEND Internal Medicine
DX: I10 Essential (primary) hypertension; R06.02 Shortness of breath; R00.0 Tachycardia, unspecified; Z72.0 Tobacco use; Z03.818 Encounter for observation for suspected exposure to other biological agents ruled out; F41.1 Generalized anxiety disorder; E11.65 Type 2 diabetes mellitus with hyperglycemia; R07.89 Other chest pain; R09.02 Hypoxemia; E83.42 Hypomagnesemia; J13 Pneumonia due to Streptococcus pneumoniae